=== PATIENT | male | born 1960 | race Caucasian/White ===

== ENCOUNTER → 2018-03-25 09:13 | Outpatient (CLI) | payer BC, SELFPAY ==
[2018-03-25 13:02] LABS: Anion Gap 11 (5-15); BUN 21 mg/dL (7-18); BUN/Creat Ratio 18.9 RATIO (10-20); Calcium,Total 8.9 mg/dL (8.5-10.1); Chloride 103 mmol/L (98-107); Cholesterol 191 mg/dL (200); Creatinine, Serum 1.11 mg/dL (0.70-1.30); EST Glomerular Filtration Rate 72 mL/min (>60); Est Glom Filt Rate - Afr Amer 87 mL/min (>60); Glucose 106 mg/dL (74-106); High Density Lipoprotein 32 mg/dL; Potassium 4.2 mmol/L (3.5-5.1); Sodium Level 141 mmol/L (136-145); Triglycerides 279 mg/dL; Uric Acid 8.3 mg/dL (3.5-7.2); Very Low Density Lipoprotein 56 mg/dL (5-40)
== END ==
PROVIDERS: Family Provider Family Medicine; PCP Family Medicine; Referring Provider Family Medicine; Visit Provider Family Medicine
DX: I10 Essential (primary) hypertension (principal); M10.9 Gout, unspecified; Z12.5 Encounter for screening for malignant neoplasm of prostate; E78.5 Hyperlipidemia, unspecified
CPT/HCPCS: 36415; 80048; 80061; 84153; 84550; G0103

== ENCOUNTER → 2019-04-22 10:12 | Outpatient (CLI) | payer BC, SELFPAY ==
[2019-04-22 13:07] LABS: ALB/GLOB Ratio 0.9 RATIO (0.9-2.4); AST(SGOT) 29 U/L (15-37); Alanine Aminotransfer ALT/SGPT 54 U/L (16-61); Albumin, Serum 3.7 g/dL (3.2-5.0); Alkaline Phosphatase 83 U/L (45-117); Anion Gap 6 (5-15); BUN 15 mg/dL (7-18); BUN/Creat Ratio 15.3 RATIO (10-20); Calcium,Total 8.7 mg/dL (8.5-10.1); Chloride 106 mmol/L (98-107); Cholesterol 193 mg/dL (200); Creatinine, Serum 0.98 mg/dL (0.70-1.30); EST Glomerular Filtration Rate 83 mL/min (>60); Est Glom Filt Rate - Afr Amer 100 mL/min (>60); Globulin 3.9 g/dL (2.2-4.2); Glucose 88 mg/dL (74-106); High Density Lipoprotein 34 mg/dL; Potassium 3.9 mmol/L (3.5-5.1); Protein, Total 7.6 g/dL (6.4-8.2); Sodium Level 139 mmol/L (136-145); Triglycerides 315 mg/dL; Very Low Density Lipoprotein 63 mg/dL (5-40)
== END ==
PROVIDERS: Family Provider Family Medicine; PCP Family Medicine; Referring Provider Family Medicine; Visit Provider Family Medicine
DX: I10 Essential (primary) hypertension (principal); E78.5 Hyperlipidemia, unspecified; Z12.5 Encounter for screening for malignant neoplasm of prostate
CPT/HCPCS: 36415; 80053; 80061; 84153; G0103

== ENCOUNTER → 2020-05-03 08:24 | Outpatient (CLI) | payer BC, SELFPAY ==
[2020-05-03 10:06] LABS: Hematocrit 41.9 % (40-54); Hemoglobin 14.5 g/dL (13.0-16.5); Mean Corp Hgb Conc 34.6 g/dL (32-36); Mean Corpuscular Hgb 31.9 pg (27.0-32.0); Mean Corpuscular Volume 92.3 fL (80-94); Mean Platelet Vol. 9.5 fl (6.2-12.0); Platelet Count 172 K/mm3 (150-450); RBC Distribution Width CV 12.2 % (11.6-14.6); RBC Distribution Width SD 41.1 fl (35.1-43.9); Red Blood Count 4.54 M/mm3 (4.6-6.2); White Blood Count 4.1 K/mm3 (4.4-11.0)
[2020-05-03 10:36] LABS: AST(SGOT) 31 U/L (15-37); Alanine Aminotransfer ALT/SGPT 55 U/L (16-61); Albumin, Serum 3.6 g/dL (3.2-5.0); Alkaline Phosphatase 95 U/L (45-117); Anion Gap 7 (5-15); BUN 23 mg/dL (7-18); BUN/Creat Ratio 23.3 RATIO (10-20); Calcium,Total 8.8 mg/dL (8.5-10.1); Chloride 105 mmol/L (98-107); Cholesterol 199 mg/dL (200); Creatinine, Serum 0.99 mg/dL (0.70-1.30); EST Glomerular Filtration Rate 82 mL/min (>60); Est Glom Filt Rate - Afr Amer 99 mL/min (>60); Globulin 3.6 g/dL (2.2-4.2); Glucose 116 mg/dL (74-106); High Density Lipoprotein 37 mg/dL; PSA,Total - Annual Screen 0.98 ng/mL (0.00-4.00); Protein, Total 7.2 g/dL (6.4-8.2); Sodium Level 139 mmol/L (136-145); Triglycerides 336 mg/dL; Very Low Density Lipoprotein 67 mg/dL (5-40)
== END ==
PROVIDERS: PCP Family Medicine; Referring Provider Family Medicine; Visit Provider Family Medicine
DX: I10 Essential (primary) hypertension (principal); E78.5 Hyperlipidemia, unspecified; Z12.5 Encounter for screening for malignant neoplasm of prostate
CPT/HCPCS: 36415; 80053; 80061; 84153; 85027; G0103

== ENCOUNTER → 2020-06-21 11:04 | Outpatient (CLI) | payer BC, SELFPAY ==
--- NOTE | 2020-06-21 11:06 | US_ITS ---
STUDY: RENAL ULTRASOUND - COMPLETE REASON FOR EXAM: Male, 60 years old. RENAL MASS TECHNIQUE: Ultrasound evaluation of the kidneys was performed with real-time and static browne-scale imaging. COMPARISON: None. FINDINGS: RIGHT KIDNEY: Normal location of the right kidney, which is normal in size. The right kidney measures 11.2 x 7.6 x 7.3 cm. There is a normal cortex of the right kidney. The renal cortex measures 1.7 cm. There is a 4.2 x 3.5 x 3.7 cm cyst. There are no right renal calculi. There is no right hydronephrosis. DISTAL RIGHT URETER: There is non-visualization of the distal right ureter. There is no demonstrated right ureterovesical junction calculus. There is a visualized right ureteral jet. LEFT KIDNEY: Normal location of the left kidney, which is normal in size. The left kidney measures 11.7 x 5.5 x 5.7 cm. There is a normal cortex of the left kidney. The renal cortex measures 1.5 cm. There is no left renal mass or cyst. There are no left renal calculi. There is no left hydronephrosis. DISTAL LEFT URETER: There is non-visualization of the distal left ureter. There is no demonstrated left ureterovesical junction calculus. There is a visualized left ureteral jet. BLADDER: The distended urinary bladder has a volume of 85 ml. There is a normal wall thickness of the distended urinary bladder. There is no demonstrated mass within the urinary bladder. There are no demonstrated bladder calculi. US/Kidney and Bladder IMPRESSION: Right renal cyst. Electronically Signed: Elio Duran DO at 23:56 EST Tel [phone], Service support ,
== END ==
PROVIDERS: PCP Family Medicine; Referring Provider Family Medicine; Visit Provider Family Medicine
DX: N28.89 Other specified disorders of kidney and ureter (principal)
CPT/HCPCS: 76770

== ENCOUNTER → 2021-10-21 | Outpatient (CLI) | payer BC, SELFPAY ==
[2021-10-21 12:05] LABS: Absolute Neutrophil Count 2.4 X10^3/uL (2.0-7.7); Basophil# 0.02 X10^3/uL; Basophil% 0.5 % (0-1); Eosinophil# 0.07 X10^3/uL; Eosinophils% 1.8 % (0-5); Hemoglobin 15.2 g/dL (13.0-16.5); Lymphocyte % 25.3 % (19-41); Mean Corp Hgb Conc 35.3 g/dL (32-36); Mean Corpuscular Hgb 32.8 pg (27.0-32.0); Mean Corpuscular Volume 92.7 fL (80-94); Mean Platelet Vol. 9.8 fl (6.2-12.0); Monocyte# 0.47 X10^3/uL; Monocyte% 11.9 % (0-10); NRBC Flagged by Analyzer 0 % (0-5); Neutrophil # 2.39 X10^3/uL (2.7-7.7); Neutrophil % 60.5 % (47-70); Platelet Count 165 K/mm3 (150-450); RBC Distribution Width CV 12.4 % (11.6-14.6); RBC Distribution Width SD 41.7 fl (35.1-43.9); Red Blood Count 4.64 M/mm3 (4.6-6.2)
[2021-10-21 12:19] LABS: AST(SGOT) 29 U/L (15-37); Alanine Aminotransfer ALT/SGPT 52 U/L (16-61); Albumin, Serum 3.8 g/dL (3.2-5.0); Alkaline Phosphatase 90 U/L (45-117); Anion Gap 5 (5-15); BUN 19 mg/dL (7-18); BUN/Creat Ratio 17.4 RATIO (10-20); Calcium,Total 9.1 mg/dL (8.5-10.1); Chloride 105 mmol/L (98-107); Creatinine, Serum 1.09 mg/dL (0.70-1.30); EST Glomerular Filtration Rate 73 mL/min (>60); Est Glom Filt Rate - Afr Amer 88 mL/min (>60); Globulin 3.8 g/dL (2.2-4.2); Glucose 92 mg/dL (74-106); Potassium 4.3 mmol/L (3.5-5.1); Protein, Total 7.6 g/dL (6.4-8.2); Sodium Level 138 mmol/L (136-145); Uric Acid 8.4 mg/dL (3.5-7.2)
== END | disposition home or self-care (01) ==
LOC: MTLAB 10:26
PROVIDERS: PCP Family Medicine; Referring Provider Family Medicine; Visit Provider Family Medicine
DX: M10.9 Gout, unspecified (principal); I10 Essential (primary) hypertension
CPT/HCPCS: 36415; 80053; 84550; 85025

== ENCOUNTER → 2022-05-17 | Outpatient (CLI) | payer BC, SELFPAY ==
--- NOTE | 2022-05-17 09:40 | EKG12_ITS ---
Test Reason : PRE-OP Blood Pressure : / mmHG Vent. Rate : 069 BPM Atrial Rate : 069 BPM P-R Int : 162 ms QRS Dur : 082 ms QT Int : 386 ms P-R-T Axes : 054 041 066 degrees QTc Int : 413 ms Normal sinus rhythm Normal ECG Confirmed by SANJANA STEVENSON, ELLEN ([id number]), primer expeditor and drier LILY RAPHAEL ([id number]) on 05/18/2022 10:52:55 AM Referred By: Nick Wilcox Confirmed By:ELLEN ALLAN MD
[2022-05-17 10:30] LABS: Hematocrit 41.4 % (40-54); Hemoglobin 14.8 g/dL (13.0-16.5); Mean Corp Hgb Conc 35.7 g/dL (32-36); Mean Corpuscular Hgb 32.7 pg (27.0-32.0); Mean Corpuscular Volume 91.4 fL (80-94); Mean Platelet Vol. 9.7 fl (6.2-12.0); Platelet Count 147 K/mm3 (150-450); RBC Distribution Width CV 11.9 % (11.6-14.6); RBC Distribution Width SD 39.8 fl (35.1-43.9); Red Blood Count 4.53 M/mm3 (4.6-6.2); White Blood Count 4.1 K/mm3 (4.4-11.0)
[2022-05-17 11:05] LABS: Anion Gap 5 (5-15); BUN 20 mg/dL (7-18); BUN/Creat Ratio 20.6 RATIO (10-20); Calcium,Total 9.6 mg/dL (8.5-10.1); Chloride 104 mmol/L (98-107); Creatinine, Serum 0.97 mg/dL (0.70-1.30); EST Glomerular Filtration Rate 83 mL/min (>60); Est Glom Filt Rate - Afr Amer 101 mL/min (>60); Glucose 141 mg/dL (74-106); Potassium 4.2 mmol/L (3.5-5.1); Sodium Level 137 mmol/L (136-145)
== END | disposition home or self-care (01) ==
LOC: PSN 09:38
PROVIDERS: PCP Family Medicine; Referring Provider Orthopaedic Surgery; Visit Provider Orthopaedic Surgery
DX: Z01.818 Encounter for other preprocedural examination (principal)
CPT/HCPCS: 36415; 80048; 85027; 93005

== ENCOUNTER → 2022-10-06 | Outpatient (CLI) | payer BC, SELFPAY ==
[2022-10-06 10:41] LABS: AST(SGOT) 19 U/L (15-37); Alanine Aminotransfer ALT/SGPT 34 U/L (16-61); Albumin, Serum 3.7 g/dL (3.2-5.0); Alkaline Phosphatase 87 U/L (45-117); Bilirubin, Direct 0.14 mg/dL (0.00-0.30); Cholesterol 198 mg/dL (200); Globulin 3.5 g/dL (2.2-4.2); High Density Lipoprotein 36 mg/dL; Protein, Total 7.2 g/dL (6.4-8.2); Triglycerides 229 mg/dL; Uric Acid 5.4 mg/dL (3.5-7.2); Very Low Density Lipoprotein 46 mg/dL (5-40)
== END | disposition home or self-care (01) ==
LOC: LAB 09:34
PROVIDERS: PCP Family Medicine; Referring Provider Nurse Practitioner Family; Visit Provider Nurse Practitioner Family
DX: Z00.00 Encounter for general adult medical examination without abnormal findings (principal); M10.9 Gout, unspecified; E78.5 Hyperlipidemia, unspecified; I10 Essential (primary) hypertension
CPT/HCPCS: 36415; 80061; 80076; 84550

== ENCOUNTER → 2022-11-06 | Outpatient (CLI) | payer BC, SELFPAY ==
[2022-11-06 12:31] LABS: Absolute Lymphocyte Count 1.36 X10^3/uL (0.83-4.51); Absolute Neutrophil Count 2.4 X10^3/uL (2.0-7.7); Basophil# 0.02 X10^3/uL; Basophil% 0.4 % (0-1); Eosinophil# 0.07 X10^3/uL; Eosinophils% 1.6 % (0-5); Hemoglobin 14.5 g/dL (13.0-16.5); Lymphocyte # 1.36 X10^3/ul (0.83-4.51); Lymphocyte % 30.5 % (19-41); Mean Corp Hgb Conc 35.4 g/dL (32-36); Mean Corpuscular Volume 93.4 fL (80-94); Mean Platelet Vol. 9.6 fl (6.2-12.0); Monocyte# 0.61 X10^3/uL; Monocyte% 13.7 % (0-10); NRBC Flagged by Analyzer 0 % (0-5); Neutrophil # 2.38 X10^3/uL (2.7-7.7); Neutrophil % 53.4 % (47-70); Platelet Count 165 K/mm3 (150-450); RBC Distribution Width CV 12.4 % (11.6-14.6); RBC Distribution Width SD 42.8 fl (35.1-43.9); Red Blood Count 4.39 M/mm3 (4.6-6.2); White Blood Count 4.5 K/mm3 (4.4-11.0)
[2022-11-06 13:10] LABS: Anion Gap 4 (5-15); BUN 15 mg/dL (7-18); BUN/Creat Ratio 15.6 RATIO (10-20); Calcium,Total 8.9 mg/dL (8.5-10.1); Chloride 106 mmol/L (98-107); Creatinine, Serum 0.96 mg/dL (0.70-1.30); EST Glomerular Filtration Rate 84 mL/min (>60); Est Glom Filt Rate - Afr Amer 101 mL/min (>60); Glucose 109 mg/dL (74-106); Potassium 3.9 mmol/L (3.5-5.1); Sodium Level 138 mmol/L (136-145); Uric Acid 5.8 mg/dL (3.5-7.2)
== END | disposition home or self-care (01) ==
LOC: LAB 11:57
PROVIDERS: PCP Family Medicine; Referring Provider Nurse Practitioner Family; Visit Provider Nurse Practitioner Family
DX: M10.9 Gout, unspecified (principal); I10 Essential (primary) hypertension
CPT/HCPCS: 36415; 80048; 84550; 85025

== ENCOUNTER → 2024-03-14 | Outpatient (CLI) | payer BC, SELFPAY ==
[2024-03-14 08:55] LABS: Absolute Lymphocyte Count 1.15 X10^3/uL (0.83-4.51); Absolute Neutrophil Count 2.7 X10^3/uL (2.0-7.7); Basophil# 0.02 X10^3/uL; Basophil% 0.5 % (0-1); Eosinophil# 0.09 X10^3/uL; Hematocrit 42.3 % (40-54); Hemoglobin 15.2 g/dL (13.0-16.5); Lymphocyte # 1.15 X10^3/ul (0.83-4.51); Lymphocyte % 26.1 % (19-41); Mean Corp Hgb Conc 35.9 g/dL (32-36); Mean Corpuscular Hgb 32.6 pg (27.0-32.0); Mean Corpuscular Volume 90.8 fL (80-94); Mean Platelet Vol. 9.5 fl (6.2-12.0); Monocyte# 0.42 X10^3/uL; Monocyte% 9.5 % (0-10); NRBC Flagged by Analyzer 0 % (0-5); Neutrophil # 2.71 X10^3/uL (2.7-7.7); Neutrophil % 61.7 % (47-70); Platelet Count 157 K/mm3 (150-450); RBC Distribution Width SD 39.4 fl (35.1-43.9); Red Blood Count 4.66 M/mm3 (4.6-6.2); White Blood Count 4.4 K/mm3 (4.4-11.0)
[2024-03-14 09:23] LABS: AST(SGOT) 30 U/L (15-37); Alanine Aminotransfer ALT/SGPT 51 U/L (16-61); Albumin, Serum 3.7 g/dL (3.2-5.0); Alkaline Phosphatase 82 U/L (45-117); Anion Gap 5 (5-15); BUN 18 mg/dL (7-18); Calcium,Total 9.1 mg/dL (8.5-10.1); Chloride 107 mmol/L (98-107); Cholesterol 192 mg/dL (200); EST Glomerular Filtration Rate 80 mL/min (>60); Est Glom Filt Rate - Afr Amer 96 mL/min (>60); Globulin 3.8 g/dL (2.2-4.2); Glucose 126 mg/dL (74-106); High Density Lipoprotein 37 mg/dL; PSA,Total - Annual Screen 0.99 ng/mL (0.00-4.00); Potassium 4.1 mmol/L (3.5-5.1); Protein, Total 7.5 g/dL (6.4-8.2); Sodium Level 137 mmol/L (136-145); Triglycerides 272 mg/dL; Uric Acid 6.8 mg/dL (3.5-7.2); Very Low Density Lipoprotein 54 mg/dL (5-40)
[2024-03-14 19:13] LABS: Hemoglobin A1c 5.9 % (3.8-5.6)
== END | disposition home or self-care (01) ==
LOC: LAB 08:15
PROVIDERS: PCP Nurse Practitioner Family; Referring Provider Nurse Practitioner Family; Visit Provider Nurse Practitioner Family
DX: I10 Essential (primary) hypertension (principal); E78.5 Hyperlipidemia, unspecified; Z12.5 Encounter for screening for malignant neoplasm of prostate; M10.9 Gout, unspecified; R73.01 Impaired fasting glucose
CPT/HCPCS: 36415; 80053; 80061; 83036; 84153; 84550; 85025; G0103

== ENCOUNTER → 2024-10-19 | Outpatient (CLI) | payer BC, SELFPAY ==
--- OUTSIDE RECORDS SUMMARY | 2024-10-19 14:36 | XMS RPT_ITS | CCD ---
Author Organization [facility] [employer] [facility] Care Team Providers Care Channel Partners Name Role Phone Unavailable Primary Care Provider Unavailabl e Nancy Underwood Attending Unavailable Nancy Underwood Referring Unavailable Nancy Underwood Primary Care Unavailable FriendBret Attending Unavailable Nancy Underwood Primary Care Unavailable Medications Current Medications Medication Drug Class(es) Dates Sig (Normalized) Sig (Original) amLODIPine 5 mg oral tablet (2 sources) Dihydropyridine Calcium Channel Marlena Start: 06-02-2022 take 1 tablet by mouth once daily amLODIPine (NORVASC) 5 mg tablet Take 5 mg by mouth once daily. 06/02/2022 Active Comment on above: Take 5 mg by mouth o nce daily. benzonatate 100 mg oral capsule (2 sources) Non-narcotic Antitussive Start: 06-21-2022 take 1 capsule by mouth every eight hours as needed benzonatate (TESSALON PERLES) 100 mg capsule Take 1 capsule by mouth three times daily as needed for cough. 14 capsule 06/21/2022 Active Comment on above: Take 1 capsule by mo [facility] three times daily as needed for cough. doxycycline monohydrate 100 mg oral tablet (1 source) Tetracycline-class Drug Start: 06-21-2022 End: 06-26-2022 take 1 tablet by mouth twice daily doxycycline monohydrate 100 mg tablet Take 1 tablet by mouth twice daily for 5 days. 10 tablet 0 06/21/2022 06/26/2022 Active Comment on above: Take 1 tablet by shanthi twice daily for 5 days. ramipril 10 mg oral capsule (2 sources) Angiotensin Converting Enzyme Inhibitor Start: 04-23-2022 take 1 capsule by mouth twice daily ramipril (ALTACE) 10 mg capsule Take 10 mg by mouth twice daily. 04/23/2022 Active Comment on above: Take 10 mg by mouth twice daily. Problems Problem Classification Problem Date Documented Da te Episodic/Chronic Essential hypertension (2 sources) Hypertensive disorder; Translations: [Essential (primary) hypertension] Onset: 04-09-2024 Chronic Other lower respiratory disease (1 source) Cough; Translations: [Acute cough] Episodic Other lower respiratory disease (1 source) Cough; Translations: [Acute cough] 06-21-2022 Episodic Other upper respiratory infections (1 source) Chronic sinusitis; Translations: [Chronic sinusitis, unspecified] Chronic Unclassified (1 source) Acute cough; Translations: [Acute cough] Onset: 06-21-2022 Results Test Name Value Interpretation Reference Range Facility CBC W/Diff, Automatedon 11-0 Absolute Lymph 1.15 X10 3/uL Normal 0.83-4.51 [facility] Comment on above: Performed By: #### L 500.4050, L501.9910, L501.1400, L500.4100, L501.9985, L100.0100 #### [facility] [address] [place], [address] Absolute Neut 2.7 X10 3/uL Normal 2.0-7.7 [facility] Comment on above: Performed By: #### L 500.4050, L501.9910, L501.1400, L500.4100, L501.9985, L100.0100 #### [facility] [address] [facility] [place], [address] Basophils/100 WBC (Bld) 0.5 % Normal 0-1 [facility] Comment on above: Performed By: #### L 500.4050, L501.9910, L501.1400, L500.4100, L501.9985, L100.0100 #### [facility] [address] [place], [address] Eosinophils/100 WBC (Bld) 2.0 % Normal 0-5 [facility] Comment on above: Performed By: #### L 500.4050, L501.9910, L501.1400, L500.4100, L501.9985, L100.0100 #### [facility] [address] [place], [address] Erythrocyte distribution width (RBC) [Ratio] 12.0 % Normal 11.6-14.6 [facility] Comment on above: Performed By: #### L 500.4050, L501.9910, L501.1400, L500.4100, L501.9985, L100.0100 #### [facility] [address] [place], [address] Hematocrit (Bld) [Volume fraction] 42.3 % Normal 40-54 [facility] Comment on above: Performed By: #### L 500.4050, L501.9910, L501.1400, L500.4100, L501.9985, L100.0100 #### [facility] [address] [place], [address] Hemoglobin (Bld) [Mass/Vol] 15.2 g/dL Normal 13.0-16.5 [facility] Comment on above: Performed By: #### L 500.4050, L501.9910, L501.1400, L500.4100, L501.9985, L100.0100 #### [facility] [address] [place], [address] IG% 0.200 Normal 0.0-0.9 [facility] Comment on above: Result Comment: IG% - Immature Granulocytes (promyelocytes, myelocytes and metamyelocytes) > 1% indicates that a LEFT SHIFT is Present. Performed By: #### L 500.4050, L501.9910, L501.1400, L500.4100, L501.9985, L100.0100 #### [facility] [address] [place], [address] Lymphocytes/100 WBC (Bld) 26.1 % Normal 19-41 [facility] Comment on above: Performed By: #### L 500.4050, L501.9910, L501.1400, L500.4100, L501.9985, L100.0100 #### [facility] [address] [place], [address] MCH (RBC) [Entitic mass] 32.6 pg High 27.0-32.0 [facility] Comment on above: Performed By: #### L 500.4050, L501.9910, L501.1400, L500.4100, L501.9985, L100.0100 #### [facility] [address] [place], [address] MCHC (RBC) [Mass/Vol] 35.9 g/dL Normal 32-36 [facility] Comment on above: Performed By: #### L 500.4050, L501.9910, L501.1400, L500.4100, L501.9985, L100.0100 #### [facility] [address] [place], [address] MCV (RBC) [Entitic vol] 90.8 fL Normal 80-94 [facility] Comment on above: Performed By: #### L 500.4050, L501.9910, L501.1400, L500.4100, L501.9985, L100.0100 #### [facility] [address] [place], [address] Monocytes/100 WBC (Bld) 9.5 % Normal 0-10 [facility] Comment on above: Performed By: #### L 500.4050, L501.9910, L501.1400, L500.4100, L501.9985, L100.0100 #### [facility] [address] [place], [address] Neutrophils/100 WBC (Bld) 61.7 % Normal 47-70 [facility] Comment on above: Performed By: #### L 500.4050, L501.9910, L501.1400, L500.4100, L501.9985, L100.0100 #### [facility] [address] [place], [address] Nucleated RBC (Bld) [#/Vol] 0 10*3/uL Normal 0-5 [facility] Comment on above: Performed By: #### L 500.4050, L501.9910, L501.1400, L500.4100, L501.9985, L100.0100 #### [facility] [address] [place], [address] Platelet mean volume (Bld) [Entitic vol] 9.5 fL Normal 6.2-12.0 [facility] Comment on above: Performed By: #### L 500.4050, L501.9910, L501.1400, L500.4100, L501.9985, L100.0100 #### [facility] [address] [place], [address] Platelets (Bld) [#/Vol] 157 10*3/uL Normal 150-450 [facility] Comment on above: Performed By: #### L 500.4050, L501.9910, L501.1400, L500.4100, L501.9985, L100.0100 #### [facility] [address] [place], [address] RBC (Bld) [#/Vol] 4.66 10*6/uL Normal 4.6-6.2 [facility] Comment on above: Performed By: #### L 500.4050, L501.9910, L501.1400, L500.4100, L501.9985, L100.0100 #### [facility] [address] [place], [address] RDW SD 39.4 fl Normal 35.1-43.9 [facility] Comment on above: Performed By: #### L 500.4050, L501.9910, L501.1400, L500.4100, L501.9985, L100.0100 #### [facility] [address] [place], [address] WBC (Bld) [#/Vol] 4.4 10*3/uL Normal 4.4-11.0 [facility] Comment on above: Performed By: #### L 500.4050, L501.9910, L501.1400, L500.4100, L501.9985, L100.0100 #### [facility] [address] [place], [address] Comprehensive Metabolic Prof kyon 03-14-2024 Albumin [Mass/Vol] 3.7 g/dL Normal 3.2-5.0 [facility] Comment on above: Performed By: #### L 500.4050, L501.9910, L501.1400, L500.4100, L501.9985, L100.0100 #### [facility] [address] [place], [address] Albumin/Globulin [Mass ratio] 1.0 {ratio} Normal 0.9-2.4 [facility] Comment on above: Performed By: #### L 500.4050, L501.9910, L501.1400, L500.4100, L501.9985, L100.0100 #### [facility] [address] [place], [address] ALK P 82 U/L Normal 45-117 [facility] Comment on above: Performed By: #### L 500.4050, L501.9910, L501.1400, L500.4100, L501.9985, L100.0100 #### [facility] [address] [place], [address] ALT [Catalytic activity/Vol] 51 U/L Normal 16-61 [facility] Comment on above: Performed By: #### L 500.4050, L501.9910, L501.1400, L500.4100, L501.9985, L100.0100 #### [facility] [address] [place], [address] AST [Catalytic activity/Vol] 30 U/L Normal 15-37 [facility] Comment on above: Performed By: #### L 500.4050, L501.9910, L501.1400, L500.4100, L501.9985, L100.0100 #### [facility] [address] [place], [address] Bilirubin [Mass/Vol] 0.50 mg/dL Normal 0.20-1.00 [facility] Comment on above: Result Comment: For patients on eltrombopag therapy, use of Dimension [place] TBIL is not recommended. Performed By: #### L 500.4050, L501.9910, L501.1400, L500.4100, L501.9985, L100.0100 #### [facility] [address] [place], [address] BUN/CRE 18.0 RATIO Normal 10-20 [facility] Comment on above: Performed By: #### L 500.4050, L501.9910, L501.1400, L500.4100, L501.9985, L100.0100 #### [facility] [address] [place], [address] CA,Total 9.1 mg/dL Normal 8.5-10.1 [facility] Comment on above: Performed By: #### L 500.4050, L501.9910, L501.1400, L500.4100, L501.9985, L100.0100 #### [facility] [address] [place], [address] Chloride [Moles/Vol] 107 mmol/L Normal 98-107 [facility] Comment on above: Performed By: #### L 500.4050, L501.9910, L501.1400, L500.4100, L501.9985, L100.0100 #### [facility] [address] [place], [address] CO2 [Moles/Vol] 25.0 mmol/L Normal 21.0-32.0 [facility] Comment on above: Performed By: #### L 500.4050, L501.9910, L501.1400, L500.4100, L501.9985, L100.0100 #### [facility] [address] [place], [address] Creatinine [Mass/Vol] 1.00 mg/dL Normal 0.70-1.30 [facility] Comment on above: Result Comment: The validity of the calculated GFR GFRAA in patients over 70 years has not been determined. Clinical correlation is essential. Performed By: #### L 500.4050, L501.9910, L501.1400, L500.4100, L501.9985, L100.0100 #### [facility] [address] [place], [address] EST GFR - AA 96 mL/min Normal >60 [facility] Comment on above: Result Comment: Afri can [place] GFR Calc Performed By: #### L 500.4050, L501.9910, L501.1400, L500.4100, L501.9985, L100.0100 #### [facility] [address] [place], [address] GAP 5 Normal 5-15 [facility] Comment on above: Performed By: #### L 500.4050, L501.9910, L501.1400, L500.4100, L501.9985, L100.0100 #### [facility] [address] [place], [address] GFR/1.73 sq M.predicted among non-blacks MDRD (S/P/Bld) [Vol rate/Area] 80 mL/min/{1.73_m2} Normal >60 [facility] Comment on above: Result Comment: Non- GFR Calc Performed By: #### L 500.4050, L501.9910, L501.1400, L500.4100, L501.9985, L100.0100 #### [facility] [address] [place], [address] Globulin (S) [Mass/Vol] 3.8 g/dL Normal 2.2-4.2 [facility] Comment on above: Performed By: #### L 500.4050, L501.9910, L501.1400, L500.4100, L501.9985, L100.0100 #### [facility] [address] [place], [address] Glucose [Mass/Vol] 126 mg/dL High 74-106 [facility] Comment on above: Result Comment: Fast ing Glucose result greater than or equal to 126 mg/dL suggests DIABETES MELLITUS per A.D.A. criteria. Performed By: #### L 500.4050, L501.9910, L501.1400, L500.4100, L501.9985, L100.0100 #### [facility] [address] [place], [address] Potassium [Moles/Vol] 4.1 mmol/L Normal 3.5-5.1 [facility] Comment on above: Performed By: #### L 500.4050, L501.9910, L501.1400, L500.4100, L501.9985, L100.0100 #### [facility] [address] [place], [address] Sodium [Moles/Vol] 137 mmol/L Normal 136-145 [facility] Comment on above: Performed By: #### L 500.4050, L501.9910, L501.1400, L500.4100, L501.9985, L100.0100 #### [facility] [address] [place], [address] T PROT 7.5 g/dL Normal 6.4-8.2 [facility] Comment on above: Performed By: #### L 500.4050, L501.9910, L501.1400, L500.4100, L501.9985, L100.0100 #### [facility] [address] [place], [address] Urea nitrogen [Mass/Vol] 18 mg/dL Normal 7-18 [facility] Comment on above: Performed By: #### L 500.4050, L501.9910, L501.1400, L500.4100, L501.9985, L100.0100 #### [facility] [address] [place], [address] Hemoglobin A1con 03-14-2024 HbA1c (Bld) [Mass fraction] 5.9 % High 3.8-5.6 [facility] Comment on above: Order Comment: ALVA UNDERWOOD CNP ADDED AN A1C. RANGLE Result Comment: Norm al < 5.7 % Prediabetic 5.7 - 6.4 % Diabetic >or= 6.5 % Please note range changes. Performed By: #### L 500.4050, L501.9910, L501.1400, L500.4100, L501.9985, L100.0100 #### [facility] [address] [place], [address] Lipid Profileon 03-14-2024 Cholesterol [Mass/Vol] 192 mg/dL Normal 200 [facility] Comment on above: Result Comment: <200 mg/dL Desirable 200-240 mg/dL Borderline >240 mg/dL High Risk Performed By: #### L 500.4050, L501.9910, L501.1400, L500.4100, L501.9985, L100.0100 #### [facility] [address] [place], [address] Cholesterol in HDL [Mass/Vol] 37 mg/dL Low [facility] Comment on above: Result Comment: The drugs N-Acetylcysteine and Metamizole may falsely depress this assay. Reference Range HDL <40 mg/dL Low HDL Cholesterol HDL >or= 60 mg/dL High HDL Cholesterol Performed By: #### L 500.4050, L501.9910, L501.1400, L500.4100, L501.9985, L100.0100 #### [facility] [address] [place], [address] Cholesterol in LDL [Mass/Vol] 101 mg/dL Normal 0-130 [facility] Comment on above: Performed By: #### L 500.4050, L501.9910, L501.1400, L500.4100, L501.9985, L100.0100 #### [facility] [address] [place], [address] Cholesterol in VLDL [Mass/Vol] 54 mg/dL High 5-40 [facility] Comment on above: Performed By: #### L 500.4050, L501.9910, L501.1400, L500.4100, L501.9985, L100.0100 #### [facility] [address] [place], [address] Triglyceride [Mass/Vol] 272 mg/dL High [facility] Comment on above: Result Comment: The drugs N-Acetylcysteine and Metamizole may falsely depress this assay. Serum Triglycerides Reference Interval Normal <150 mg/dL Borderline high 150 - 199 mg/dL High 200 - 499 mg/dL Very High > or = 500 mg/dL Performed By: #### L 500.4050, L501.9910, L501.1400, L500.4100, L501.9985, L100.0100 #### [facility] [address] [place], [place], [id number] PSA,Total - Annual Screenon 03-14-2024 PSA,TOT SCREEN 0.99 ng/mL Normal 0.00-4.00 [facility] Comment on above: Result Comment: This test was performed using the TPSA assay method for the [employer] chemistry system. Values obtained with different assay methods cannot be used interchangably. When changing PSA assays in the course of monitoring a patient, additional sequential testing should be carried out to confirm baseline values. Performed By: #### L 500.4050, L501.9910, L501.1400, L500.4100, L501.9985, L100.0100 #### [facility] [address] [place], [place], [id number] Uric Acidon 03-14-2024 URIC 6.8 mg/dL Normal 3.5-7.2 [facility] Comment on above: Result Comment: The drugs N-Acetylcysteine and Metamizole may falsely depress this assay. Performed By: #### L 500.4050, L501.9910, L501.1400, L500.4100, L501.9985, L100.0100 #### [facility] [address] [place], [place], [id number] Absolute lymphocyte countOrd ered By: Nancy Underwood on 11-06-2022 Lymphocytes Auto (Unsp spec) [#/Vol] 1.36 10*3/uL 0.83-4.51 [facility] Basophil percentageOrdered B y: Nancy Mchughgar on 11-06-2022 Basophils/100 WBC (Bld) 0.4 % 0-1 [facility] Chloride [Moles/Vol] 106 mmol/L 98-107 [facility] Eosinophils/100 WBC (Bld) 1.6 % 0-5 [facility] Glucose [Mass/Vol] 109 mg/dL 74-106 [facility] Comment on above: Fasting Glucose resu lt from 100 to 125 mg/dL suggests IMPAIRED HOMEOSTASIS per A.D.A. criteria. Neutrophils (Bld) [#/Vol] 2.4 10*3/uL 2.0-7.7 [facility] Neutrophils/100 WBC (Bld) 53.4 % 47-70 [facility] Potassium [Moles/Vol] 3.9 mmol/L 3.5-5.1 [facility] Sodium [Moles/Vol] 138 mmol/L 136-145 [facility] WBC (Bld) [#/Vol] 4.5 10*3/uL 4.4-11.0 [facility] Blood erythrocytes count (nu mber/volume)Ordered By: Nancy Underwood on 11-06-2022 RBC (Bld) [#/Vol] 4.39 10*6/uL 4.6-6.2 [facility] Blood hemoglobin measurement (mass/volume)Ordered By: Nancy Underwood on 11-06-2022 Hemoglobin (Bld) [Mass/Vol] 14.5 g/dL 13.0-16.5 [facility] Blood lymphocytes/100 leukoc ytesOrdered By: Nancy Underwood on 11-06-2022 Lymphocytes/100 WBC (Bld) 30.5 % 19-41 [facility] Blood monocytes/100 leukocyt esOrdered By: Nancy Underwood on 11-06-2022 Monocytes/100 WBC (Bld) 13.7 % 0-10 [facility] Blood platelet mean volumeOr dered By: Nancy Underwood on 11-06-2022 Platelet mean volume (Bld) [Entitic vol] 9.6 fL 6.2-12.0 [facility] Determination of erythrocyte mean corpuscular volume (MCV)Ordered By: Nancy Underwood on 11-06-2022 MCV (RBC) [Entitic vol] 93.4 fL 80-94 [facility] Hematocrit Auto (Bld) [Volum e fraction]Ordered By: Nancy Underwood on 11-06-2022 Hematocrit (Bld) [Volume fraction] 41.0 % 40-54 [facility] - Chemistry and C hemistry - challengeOrdered By: Nancy Underwood on 11-06-2022 CO2 [Moles/Vol] 28.0 mmol/L 21.0-32.0 [facility] Urea nitrogen/Creatinine [Mass ratio] 15.6 mg/mg 10-20 [facility] - Hematology and Cell countsOrdered By: Nancy Underwood on 11-06-2022 Erythrocyte distribution width (RBC) [Entitic vol] 42.8 fL 35.1-43.9 [facility] Erythrocyte distribution width (RBC) [Ratio] 12.4 % 11.6-14.6 [facility] Immature granulocytes/100 WBC (Bld) 0.400 % 0.0-0.9 [facility] Comment on above: IG% - Immature Granu locytes (promyelocytes, myelocytes and metamyelocytes) > 1% indicates that a LEFT SHIFT is Present. MCH (RBC) [Entitic mass] 33.0 pg 27.0-32.0 [facility] Nucleated RBC/100 WBC (Bld) [Ratio] 0 % 0-5 [facility] MCHC Auto (RBC) [Mass/Vol]Or dered By: Nancy Underwood on 11-06-2022 MCHC (RBC) [Mass/Vol] 35.4 g/dL 32-36 [facility] No Panel InformationOrdered By: Nancy Underwood on 11-06-2022 Estimated GFR (MDRD) Amer 101 mL/min >60 [facility] Comment on above: GFR Calc Estimated GFR (MDRD) Non-Af Amer 84 mL/min >60 [facility] Comment on above: Non- GFR Calc Platelets bldOrdered By: Long Underwood on 11-06-2022 Platelets (Bld) [#/Vol] 165 10*3/uL 150-450 [facility] Serum or plasma calcium daniel urement (mass/volume)Ordered By: Nancy Underwood on 11-06-2022 Calcium [Mass/Vol] 8.9 mg/dL 8.5-10.1 [facility] Serum or plasma creatinine m easurement (mass/volume)Ordered By: Nancy Underwood on 11-06-2022 Creatinine [Mass/Vol] 0.96 mg/dL 0.70-1.30 [facility] Comment on above: The validity of the calculated GFR & GFRAA in patients over 70 years has not been determined. Clinical correlation is essential. Serum or plasma urea nitroge n measurement (mass/volume)Ordered By: Nancy Underwood on 11-06-2022 Urea nitrogen [Mass/Vol] 15 mg/dL 7-18 [facility] Serum or plasma uric acid me asurement (mass/volume)Ordered By: Nancy Underwood on 11-06-2022 Urate [Mass/Vol] 5.8 mg/dL 3.5-7.2 [facility] Comment on above: The drugs N-Acetylcy steine and Metamizole may falsely depress this assay. Thin prep Papanicolaou smear with manual screeningOrdered By: Nancy Underwood on 11-06-2022 Thin prep Papanicolaou smear with manual screening 4 5-15 [facility] Basophil percentageOrdered B y: Nancy Underwood on 10-06-2022 Bilirubin [Mass/Vol] 0.30 mg/dL 0.20-1.00 [facility] Comment on above: For patients on eltr ombopag therapy, use of Dimension [place] TBIL is not recommended. Cholesterol [Mass/Vol] 198 mg/dL <200 [facility] Comment on above: <200 mg/dL Desirable 200-240 mg/dL Borderline >240 mg/dL High Risk Protein [Mass/Vol] 7.2 g/dL 6.4-8.2 [facility] Triglyceride [Mass/Vol] 229 mg/dL <199 [facility] Comment on above: The drugs N-Acetylcy steine and Metamizole may falsely depress this assay.Serum Triglycerides Reference Interval Normal <150 mg/dL Borderline high 150 - 199 mg/dL High 200 - 499 mg/dL Very High > or = 500 mg/dL Direct bilirubinOrdered By: Nancy Underwood on 10-06-2022 Bilirubin.direct [Mass/Vol] 0.14 mg/dL 0.00-0.30 [facility] - Chemistry and C hemistry - challengeOrdered By: Nancy Underwood on 10-06-2022 ALP [Catalytic activity/Vol] 87 U/L 45-117 [facility] ALT [Catalytic activity/Vol] 34 U/L 16-61 [facility] Globulin (S) [Mass/Vol] 3.5 g/dL 2.2-4.2 [facility] Serum or plasma albumin daniel urement (mass/volume)Ordered By: Nancy Underwood on 10-06-2022 Albumin [Mass/Vol] 3.7 g/dL 3.2-5.0 [facility] Serum or plasma cholesterol in HDL measurement (mass/volume)Ordered By: Nancy Underwood on 10-06-2022 Cholesterol in HDL [Mass/Vol] 36 mg/dL >40 [facility] Comment on above: The drugs N-Acetylcy steine and Metamizole may falsely depress this assay. Reference Range HDL <40 mg/dL Low HDL Cholesterol HDL >or= 60 mg/dL High HDL Cholesterol Serum or plasma cholesterol in VLDL measurement (mass/volume)Ordered By: Nancy Underwood on 10-06-2022 Cholesterol in VLDL [Mass/Vol] 46 mg/dL 5-40 [facility] Serum or plasma low density lipoprotein (LDL) cholesterol measurement (mass/volume)Ordered By: Nancy Underwood on 10-06-2022 Cholesterol in LDL [Mass/Vol] 116 mg/dL 0-130 [facility] Serum or plasma uric acid me asurement (mass/volume)Ordered By: Nancy Underwood on 10-06-2022 Urate [Mass/Vol] 5.4 mg/dL 3.5-7.2 [facility] Comment on above: The drugs N-Acetylcy steine and Metamizole may falsely depress this assay. Thin prep Papanicolaou smear with manual screeningOrdered By: Nancy Underwood on 10-06-2022 Thin prep Papanicolaou smear with manual screening 19 U/L 15-37 [facility] CNOVon 06-21-2022 CNOV Office Visit (UCWSTR ) DARRYL ANGULO ([id number]) 1960 M Date Time Provider Department 06/21/22 6:45 PM CARMELITA JONES During your visit today, we recorded the following information about you: Temperature Pulse Respiration Blood pressure 97.4 degrees 91/minute 21/minute 182/100 Weight 107.1 kg SHIRLEY Roland 06/21/2022 7:21 PM Signed This note was created using [employer]xtControl. Subjective Darryl Angulo is a 62 year old male. HPI 62-year-old male presents for cough x1 month, nasal congestion. Patient states that he has had nasal congestion, sinus pressure for a month. He has also had a cough for months. He states it is a productive cough and he is coughing up green phlegm. No hemoptysis. He denies any history of asthma or COPD. No shortness of breath or chest pain. No vomiting or diarrhea. No fevers. No sick contacts that he is aware of. He has been taking [id number] DayQuil and NyQuil. Blood pressure is elevated here. States that his blood pressure always goes up and down and he has not taken his evening medication yet. No past medical history on file. No past surgical history on file. ALLERGIES Patient has no allergy information on record. MEDICATIONS amLODIPine (NORVASC) 5 mg tablet Take 5 mg by mouth once daily. ramipril (ALTACE) 10 mg capsule Take 10 mg by mouth twice daily. No family history on file. Social History Tobacco Use Smoking status: Never Passive exposure: Never Smokeless tobacco: Never Review of Systems Constitutional: Negative for chills and fever. HENT: Positive for congestion, sinus pressure and sinus pain. Negative for sore throat. Respiratory: Positive for cough. Negative for shortness of breath. Gastrointestinal: Negative for diarrhea and vomiting. Objective BP 182/100 Pulse 91 Temp 36.3 ?C (97.4 ?F) Resp 21 Wt 107.1 kg (236 lb 3.2 oz) SpO2 97% Physical Exam Vitals and nursing note reviewed. Constitutional: General: He is not in acute distress. Appearance: Normal appearance. He is not toxic-appearing. HENT: Right Ear: Tympanic membrane and ear canal normal. Left Ear: Tympanic membrane and ear canal normal. Nose: Congestion present. Right Sinus: Maxillary sinus tenderness present. Left Sinus: Maxillary sinus tenderness present. Mouth/Throat: Mouth: Mucous membranes are moist. Eyes: Conjunctiva/sclera: Conjunctivae normal. Cardiovascular: Rate and Rhythm: Normal rate and regular rhythm. Pulmonary: Effort: Pulmonary effort is normal. Breath sounds: Normal breath sounds. Skin: General: Skin is warm and dry. Neurological: Mental Status: He is alert. Assessment and Plan ASSESSMENT/PLAN: 1. Sinobronchitis - ICD9: 473.9, 490, ICD10: J32.9, J40 (primary diagnosis) -Symptoms x1 month - Will begin treatment with Doxycycline - Supportive care with plenty of fluids, rest, and analgesia prn. -Symptoms x1 month, declines COVID/flu swab. 2. Acute cough - ICD9: 786.2, ICD10: R05.1 - XR CHEST 2V FRONTAL/LAT - no acute finding. -Rx for Tessalon Perles 3. Hypertension, unspecified type - ICD9: 401.9, ICD10: I10 -Blood pressure elevated at 182/100. This was repeated and remained the same. He has not taken his evening medication yet. He denies any chest pain, headaches. Has been taking OTC medications for his symptoms, which may be increasing his BP. - Recommended regular aerobic exercise. - Recommend home blood pressure monitoring, to bring results in on next visit - Goal of BP <130/80 -Recommended continue medications as prescribed and keep blood pressure log at home to follow-up with PCP this week. -Recommended holding off on OTC cough/cold medications as this may be affecting his blood pressure. Diagnosis and treatment plan were discussed and questions were answered to the patient's satisfaction. Pt acknowledged understanding of concepts and follow up plan. Specific signs and symptoms that would indicate the need for higher level of care were discussed in detail warranting prompt ER evaluation. SHIRLEY Roland Referring Provider: SELF [[id number]] Allergies As of Date: 06/21/2022 (Not on File) Date Reviewed: 06/21/2022 Reviewed by: Mansi Palencia MA - Fully Assessed Reason for Visit: Cough [28] Cmt: Sore throat, chest congestion x 1 month Primary Visit Diagnosis:Sinobronchi tis [J32.9, J40] Other Visit Diagnoses:Acute cough [R05.1] Hypertension, unspecified type [I10] Order(s):XR CHEST 2V FRONTAL/LAT [[id number]] Order #: [id number] FUTURE doxycycline monohydrate 100 mg tabletTake 1 tablet by mouth twice daily for 5 days.Disp: 10 tabletRfl: 0 benzonatate (TESSALON PERLES) 100 mg capsuleTake 1 capsule by mouth three times daily as needed for cough.Disp: 14 capsuleRfl: 0 Prescriptions as of 06/21/2022 - amLODIPine (NORVASC) 5 mg tablet Take 5 mg by mouth once daily. - ramipril (SERAFIN (more content not included)... Normal [facility] XR CHEST 2V FRONTAL/LATon XR CHEST 2V FRONTAL/LAT * * *Final Repor t* * * DATE OF EXAM: Jun 21 2022 7:09PM WOX [id number] - XR CHEST 2V FRONTAL/LAT / PROCEDURE REASON: Acute cough * * * * Physician Interpretation * * * * EXAMINATION: CHEST RADIOGRAPH (2 VIEW FRONTAL and LATERAL) CLINICAL HISTORY: Acute cough MQ: XC2_6 EXAM DATE/TIME: 06/21/2022 7:09 PM COMPARISON: No relevant prior studies available. RESULT: Lines, tubes, and devices: None. Lungs and pleura: No consolidation. No lung mass. No pleural effusion. No pneumothorax. Cardiomediastinal silhouette: Normal cardiomediastinal silhouette. Bones and soft tissues: Unremarkable. IMPRESSION: No acute radiographic abnormality. Therapeutic Riding Instructor: [facility] Transcribe Date/Time: Jun 21 2022 7:16P Dictated by : DANELLE GUZMAN MD This examination was interpreted and the report reviewed and electronically signed by: DANELLE GUZMAN MD on Jun 21 2022 7:16PM EST [id number] N Normal [facility] XR Chest PA and Lateralon IMPRESSION: No acute radiographic abnormality. Therapeutic Riding Instructor: [facility] Transcribe Date/Time: Jun 21 2022 7:16P Dictated by : DANELLE GUZMAN MD This examination was interpreted and the report reviewed and electronically signed by: DANELLE GUZMAN MD on Jun 21 2022 7:16PM EST DIVISION OF RADIOLOGY * * *Final Report* * * DATE OF EXAM: Jun 21 2022 7:09PM WOX [id number] - XR CHEST 2V FRONTAL/LAT / PROCEDURE REASON: Acute cough * * * * Physician Interpretation * * * * EXAMINATION: CHEST RADIOGRAPH (2 VIEW FRONTAL & LATERAL) CLINICAL HISTORY: Acute cough MQ: XC2_6 EXAM DATE/TIME: 06/21/2022 7:09 PM COMPARISON: No relevant prior studies available. RESULT: Lines, tubes, and devices: None. Lungs and pleura: No consolidation. No lung mass. No pleural effusion. No pneumothorax. Cardiomediastinal silhouette: Normal cardiomediastinal silhouette. Bones and soft tissues: Unremarkable. DIVISION OF RADIOLOGY Provider, Terri [facility] - 06/21/2022 * * *Final Report* * * DATE OF EXAM: Jun 21 2022 7:09PM WOX [id number] - XR CHEST 2V FRONTAL/LAT / PROCEDURE REASON: Acute cough * * * * Physician Interpretation * * * * EXAMINATION: CHEST RADIOGRAPH (2 VIEW FRONTAL & LATERAL) CLINICAL HISTORY: Acute cough MQ: XC2_6 EXAM DATE/TIME: 06/21/2022 7:09 PM COMPARISON: No relevant prior studies available. RESULT: Lines, tubes, and devices: None. Lungs and pleura: No consolidation. No lung mass. No pleural effusion. No pneumothorax. Cardiomediastinal silhouette: Normal cardiomediastinal silhouette. Bones and soft tissues: Unremarkable. IMPRESSION IMPRESSION: No acute radiographic abnormality. Therapeutic Riding Instructor: [facility] Transcribe Date/Time: Jun 21 2022 7:16P Dictated by : DANELLE GUZMAN MD This examination was interpreted and the report reviewed and electronically signed by: DANELLE GUZMAN MD on Jun 21 2022 7:16PM EST [facility] Radiology Study observation (narrative) Kayce scales [facility] XR Chest PA and LateralOrder ed By: [facility] Provider on 06-21-2022 [facility] Basophil percentageOrdered B y: Dr. Wilcox on 05-17-2022 Chloride [Moles/Vol] 104 mmol/L 98-107 [facility] Glucose [Mass/Vol] 141 mg/dL 74-106 [facility] Comment on above: Fasting Glucose resu lt greater than or equal to 126 mg/dL suggests DIABETES MELLITUS per A.D.A. criteria. Potassium [Moles/Vol] 4.2 mmol/L 3.5-5.1 [facility] Sodium [Moles/Vol] 137 mmol/L 136-145 [facility] WBC (Bld) [#/Vol] 4.1 10*3/uL 4.4-11.0 [facility] Blood erythrocytes count (nu mber/volume)Ordered By: Dr. Wilcox on 05-17-2022 RBC (Bld) [#/Vol] 4.53 10*6/uL 4.6-6.2 [facility] Blood hemoglobin measurement (mass/volume)Ordered By: Dr. Wilcox on 05-17-2022 Hemoglobin (Bld) [Mass/Vol] 14.8 g/dL 13.0-16.5 [facility] Blood platelet mean volumeOr dered By: Dr. Wilcox on 05-17-2022 Platelet mean volume (Bld) [Entitic vol] 9.7 fL 6.2-12.0 [facility] Determination of erythrocyte mean corpuscular volume (MCV)Ordered By: Dr. Wilcox on 05-17-2022 MCV (RBC) [Entitic vol] 91.4 fL 80-94 [facility] Hematocrit Auto (Bld) [Volum e fraction]Ordered By: Dr. Wilcox on 05-17-2022 Hematocrit (Bld) [Volume fraction] 41.4 % 40-54 [facility] Laboratory - Chemistry and C hemistry - challengeOrdered By: Dr. Wilcox on 05-17-2022 CO2 [Moles/Vol] 28.0 mmol/L 21.0-32.0 [facility] Urea nitrogen/Creatinine [Mass ratio] 20.6 mg/mg 10-20 [facility] Laboratory - Hematology and Cell countsOrdered By: Dr. Wilcox on 05-17-2022 Erythrocyte distribution width (RBC) [Entitic vol] 39.8 fL 35.1-43.9 [facility] Erythrocyte distribution width (RBC) [Ratio] 11.9 % 11.6-14.6 [facility] MCH (RBC) [Entitic mass] 32.7 pg 27.0-32.0 [facility] MCHC Auto (RBC) [Mass/Vol]Or dered By: Dr. Wilcox on 05-17-2022 MCHC (RBC) [Mass/Vol] 35.7 g/dL 32-36 [facility] No Panel InformationOrdered By: Dr. Wilcox on 05-17-2022 Estimated GFR (MDRD) Amer 101 mL/min >60 [facility] Comment on above: GFR Calc Estimated GFR (MDRD) Non-Af Amer 83 mL/min >60 [facility] Comment on above: Non- GFR Calc Platelets bldOrdered By: Dr. Wilcox on 05-17-2022 Platelets (Bld) [#/Vol] 147 10*3/uL 150-450 [facility] Serum or plasma calcium daniel urement (mass/volume)Ordered By: Dr. Wilcox on 05-17-2022 Calcium [Mass/Vol] 9.6 mg/dL 8.5-10.1 [facility] Serum or plasma creatinine m easurement (mass/volume)Ordered By: Dr. Wilcox on 05-17-2022 Creatinine [Mass/Vol] 0.97 mg/dL 0.70-1.30 [facility] Comment on above: The validity of the calculated GFR & GFRAA in patients over 70 years has not been determined. Clinical correlation is essential. Serum or plasma urea nitroge n measurement (mass/volume)Ordered By: Dr. Wilcox on 05-17-2022 Urea nitrogen [Mass/Vol] 20 mg/dL 7-18 [facility] Thin prep Papanicolaou smear with manual screeningOrdered By: Dr. Wilcox on 05-17-2022 Thin prep Papanicolaou smear with manual screening 5 -15 [facility] Vital Signs Date Time Vital Sign Value Performing Clinician Silke rosa 06-21-2022 18:41-0500 Body temperature 97.39 [degF] Carmelita Jones PA Work Phone: [facility] 06-21-2022 18:41-0500 Body weight 107.14 kg Carmelita Jones PA Work Phone: [facility] 06-21-2022 18:41-0500 Diastolic blood pressure 100 mm[Hg] Carmelita Jones PA Work Phone: [facility] 06-21-2022 18:41-0500 Heart rate 91 /min Carmelita WATSON Work Phone: [facility] 06-21-2022 18:41-0500 Respiratory rate 21 /min Carmelita WATSON Work Phone: [facility] 06-21-2022 18:41-0500 SaO2% (BldA) [Mass fraction] 97 % Carmelita Jones PA Work Phone: [facility] 06-21-2022 18:41-0500 Systolic blood pressure 182 mm[Hg] Carmelita WATSON Work Phone: [facility] Encounters Encounter Date Encounter Type Care Provider Facility Start: 12-17-2024 ambulatory Bret Lilly Facility :[facility] Start: 03-14-2024 End: 03-14-2024 ambulatory Nancyyuliya Underwood Facility:[facility] Start: 11-06-2022 End: 11-06-2022 ambulatory [facility] Work Phone: Start: 11-06-2022 End: 11-06-2022 Patient encounter procedure [facility] Work Phone: Start: 10-06-2022 End: 10-06-2022 ambulatory [facility] Work Phone: Start: 10-06-2022 End: 10-06-2022 Patient encounter procedure [facility] Start: 06-21-2022 End: 06-21-2022 ambulatory Facility:[facility] Start: 06-21-2022 End: 06-21-2022 Subsequent hospital visit by physician [facility] Work Phone: Radiology Comment on above: Acute cough [R05.1] Start: 06-21-2022 End: 06-21-2022 Patient encounter procedure Carmelita WATSON Work Phone: [facility] Comment on above: Sinobronchitis (Prim dalia Dx); Acute cough; Hypertension, unspecified type Start: 05-17-2022 End: 05-17-2022 ambulatory [facility] Work Phone: Start: 05-17-2022 End: 05-17-2022 Patient encounter procedure [facility]/Neurology Procedures Date Procedure Procedure Detail Performing Clinician Start: 06-21-2022 Radiologic exam ches t 2 views Carmelita WATSON Work Phone: Plan of Treatment Date Care Activity Detail Author Start: 2034 RSV Vaccine (1 - 1-d ose 75+ series) RSV Vaccine (1 - 1-dose 75+ series) [facility] Start: 05-03-2030 Urine microalbumin profile DTa P,Tdap,Td Vaccine (3 - Td or Tdap) [facility] Start: 01-06-2024 Covid-19 Vaccine ( season) Covid-19 Vaccine () [facility] Start: 01-06-2024 Influenza vaccination Influenza Vacc ine (#1) [facility] Start: 05-07-2022 DEPRESSION ASSESSMENT DEPRESSION ASS ESSMENT [facility] Start: 04-15-2022 COVID-19 VACCINE (2 - Pfizer series) COVID-19 VACCINE (2 - Pfizer series) [facility] Start: 06-28-2020 Shingrix Vaccine (2 of 2) Shingrix V accine (2 of 2) [facility] Start: 2014 PROSTATE CANCER SCRE ENING DISCUSSION PROSTATE CANCER SCREENING DISCUSSION [facility] Start: 2014 Prostate specific an tigen measurement Prostate Cancer Screening Discussion [facility] Start: 2009 SHINGRIX VACCINE (1 of 2) SHINGRIX V ACCINE (1 of 2) [facility] Start: 2004 COLOGUARD (FIT-DNA) COLOGUARD (FIT-D NA) [facility] Start: [address] [facility] Start: 2004 COLORECTAL CANCER SCREENING COLORECTAL CANCER SCREENING [facility] Start: [address] COLONOGRAPHY [facility] Start: 2004 DIABETES SCREEN DIABETES SCREEN [facility] Start: 2004 Diabetes Screening Diabetes Screenin g [facility] Start: 2004 FECAL OCCULT BLOOD FECAL OCCULT BLOO D [facility] Start: 2004 Screening for malign ant neoplasm of colon [facility] Start: 2004 SIGMOIDOSCOPY SIGMOIDOSCOPY Kayce scales [facility] Start: 1994 Lipid panel Lipid Screening [facility] Start: 1994 LIPID SCREEN LIPID SCREEN [facility] Start: 1978 Urine microalbumin profile DTAP,TDAP ,TD (1 - Tdap) [facility] Start: 1977 Anxiety Screening Anxiety Screening [facility] Start: 1977 Depression Screening Depression Scre ening [facility] Start: 1977 HEPATITIS C SCREENING HEPATITIS C [facility] Start: 1977 Hepatitis C screening Hepatitis C [facility] Start: 1977 HIV SCREENING HIV SCREENING [facility] Start: 1977 HIV screening HIV Screening [facility] Immunizations Immunization Date Immunization Notes Care Provider Fa cility 03-25-2022 influenza virus vacc ine, unspecified formulation Xr [employer] Work Phone: [facility] Payers Date Payer Category Payer Self-pay [id number] 2021 Unknown [id number] 2021 Unknown ANTHEM ANTHEM BC BS FEP PPO [id number] 2021-Present [phone] [id number] [place] [address] PPO [id number] Unknown [facility] [id number] Unknown [facility] PACKAGE PLAN [id number] Unknown [id number] Unknown [id number] Social History Date Type Detail Facility Tobacco smoking status NHIS Unknown if ever smoked [facility] Work Phone: Start: 1960 Sex Assigned At Male [facility] Start: 06-21-2022 Tobacco smoking status NHIS Never smoked tobacco [facility] Start: 06-21-2022 Tobacco use and exposure Smokeless tobacco non-user [facility] Start: 1960 Sex Assigned At Not on file [facility] Start: 06-21-2022 History of Social function [facility] Start: 06-21-2022 Tobacco use panel [facility] NEGATED: Highlighted rowStart: NINF History of tobacco use Passive smoker [facility] Progress note 06-21-2022 Note Date & Type Note Facility 06-21-2022 Note HNO ID: [id number] Author: RT Deanna(R) Service: ? Author Type: Topology Professor Type: Progress Notes Filed: 06/21/2022 7:10 PM Note Text: Radiology Service Progress Note PATIENT NAME: Darryl Angulo DATE OF SERVICE: June 21, 2022 TIME: 7:01 PM PATIENT IDENTITY VERIFICATION COMPLETED USING TWO (2) IDENTIFIERS: Name and Date of confirmed by patient verbally. FALL SCREENING: Has the patient had 2 falls in the last year or 1 fall with injury or currently using an Ambulatory Assistive Device (Walker, Cane, Wheelchair, Crutches, etc.)? No PATIENT GENDER DATA: Male PATIENT RELEVANT IMPLANT DATA REVIEWED: Yes RADIOLOGY DEPARTMENT: General X-ray: Exam(s) Completed: Chest X-Ray PERIPHERAL IV DATA: Not applicable SIGNED BY: RT Deanna(R) June 21, 2022 7:01 PM [facility] Progress note 06-21-2022 Note Date & Type Note Facility 06-21-2022 Note HNO ID: [id number] Author: SHIRLEY Roland Service: ? Author Type: Physician Amortization Schedule Clerk Type: Progress Notes Filed: 06/21/2022 7:21 PM Note Text: This note was created using nxtControl. Subjective Darryl Angulo is a 62 year old male. HPI 62-year-old male presents for cough x1 month, nasal congestion. Patient states that he has had nasal congestion, sinus pressure for a month. He has also had a cough for months. He states it is a productive cough and he is coughing up green phlegm. No hemoptysis. He denies any history of asthma or COPD. No shortness of breath or chest pain. No vomiting or diarrhea. No fevers. No sick contacts that he is aware of. He has been taking [id number] DayQuil and NyQuil. Blood pressure is elevated here. States that his blood pressure always goes up and down and he has not taken his evening medication yet. No past medical history on file. No past surgical history on file. ALLERGIES Patient has no allergy information on record. MEDICATIONS amLODIPine (NORVASC) 5 mg tablet Take 5 mg by mouth once daily. ramipril (ALTACE) 10 mg capsule Take 10 mg by mouth twice daily. No family history on file. Social History Tobacco Use Smoking status: Never Passive exposure: Never Smokeless tobacco: Never Review of Systems Constitutional: Negative for chills and fever. HENT: Positive for congestion, sinus pressure and sinus pain. Negative for sore throat. Respiratory: Positive for cough. Negative for shortness of breath. Gastrointestinal: Negative for diarrhea and vomiting. Objective BP 182/100 Pulse 91 Temp 36.3 ?C (97.4 ?F) Resp 21 Wt 107.1 kg (236 lb 3.2 oz) SpO2 97% Physical Exam Vitals and nursing note reviewed. Constitutional: General: He is not in acute distress. Appearance: Normal appearance. He is not toxic-appearing. HENT: Right Ear: Tympanic membrane and ear canal normal. Left Ear: Tympanic membrane and ear canal normal. Nose: Congestion present. Right Sinus: Maxillary sinus tenderness present. Left Sinus: Maxillary sinus tenderness present. Mouth/Throat: Mouth: Mucous membranes are moist. Eyes: Conjunctiva/sclera: Conjunctivae normal. Cardiovascular: Rate and Rhythm: Normal rate and regular rhythm. Pulmonary: Effort: Pulmonary effort is normal. Breath sounds: Normal breath sounds. Skin: General: Skin is warm and dry. Neurological: Mental Status: He is alert. Assessment and Plan ASSESSMENT/PLAN: 1. Sinobronchitis - ICD9: 473.9, 490, ICD10: J32.9, J40 (primary diagnosis) -Symptoms x1 month - Will begin treatment with Doxycycline - Supportive care with plenty of fluids, rest, and analgesia prn. -Symptoms x1 month, declines COVID/flu swab. 2. Acute cough - ICD9: 786.2, ICD10: R05.1 - XR CHEST 2V FRONTAL/LAT - no acute finding. -Rx for Richard Bolivar 3. Hypertension, unspecified type - ICD9: 401.9, ICD10: I10 -Blood pressure elevated at 182/100. This was repeated and remained the same. He has not taken his evening medication yet. He denies any chest pain, headaches. Has been taking OTC medications for his symptoms, which may be increasing his BP. - Recommended regular aerobic exercise. - Recommend home blood pressure monitoring, to bring results in on next visit - Goal of BP <130/80 -Recommended continue medications as prescribed and keep blood pressure log at home to follow-up with PCP this week. -Recommended holding off on OTC cough/cold medications as this may be affecting his blood pressure. Diagnosis and treatment plan were discussed and questions were answered to the patient's satisfaction. Pt acknowledged understanding of concepts and follow up plan. Specific signs and symptoms that would indicate the need for higher level of care were discussed in detail warranting prompt ER evaluation. SHIRLEY Roland [facility] History of Present illness Narrative 06-21-2022 SHIRLEY Roland - 06/21/2022 6:56 PM EST Note Date & Type Note Facility 06-21-2022 History of Presen t illness Narrative This note was created using nxtControl. Subjective Darryl Angulo is a 62 year old male. HPI 62-year-old male presents for cough x1 month, nasal congestion. Patient states that he has had nasal congestion, sinus pressure for a month. He has also had a cough for months. He states it is a productive cough and he is coughing up green phlegm. No hemoptysis. He denies any history of asthma or COPD. No shortness of breath or chest pain. No vomiting or diarrhea. No fevers. No sick contacts that he is aware of. He has been taking [id number] DayQuil and NyQuil. Blood pressure is elevated here. States that his blood pressure always goes up and down and he has not taken his evening medication yet. No past medical history on file. No past surgical history on file. ALLERGIES Patient has no allergy information on record. MEDICATIONS amLODIPine (NORVASC) 5 mg tablet Take 5 mg by mouth once daily. ramipril (ALTACE) 10 mg capsule Take 10 mg by mouth twice daily. No family history on file. Social History Tobacco Use Smoking status: Never Passive exposure: Never Smokeless tobacco: Never Review of Systems Constitutional: Negative for chills and fever. HENT: Positive for congestion, sinus pressure and sinus pain. Negative for sore throat. Respiratory: Positive for cough. Negative for shortness of breath. Gastrointestinal: Negative for diarrhea and vomiting. Objective BP 182/100 Pulse 91 Temp 36.3 C (97.4 F) Resp 21 Wt 107.1 kg (236 lb 3.2 oz) SpO2 97% Physical Exam Vitals and nursing note reviewed. Constitutional: General: He is not in acute distress. Appearance: Normal appearance. He is not toxic-appearing. HENT: Right Ear: Tympanic membrane and ear canal normal. Left Ear: Tympanic membrane and ear canal normal. Nose: Congestion present. Right Sinus: Maxillary sinus tenderness present. Left Sinus: Maxillary sinus tenderness present. Mouth/Throat: Mouth: Mucous membranes are moist. Eyes: Conjunctiva/sclera: Conjunctivae normal. Cardiovascular: Rate and Rhythm: Normal rate and regular rhythm. Pulmonary: Effort: Pulmonary effort is normal. Breath sounds: Normal breath sounds. Skin: General: Skin is warm and dry. Neurological: Mental Status: He is alert. Assessment and Plan ASSESSMENT/PLAN: 1. Sinobronchitis - ICD9: 473.9, 490, ICD10: J32.9, J40 (primary diagnosis) -Symptoms x1 month - Will begin treatment with Doxycycline - Supportive care with plenty of fluids, rest, and analgesia prn. -Symptoms x1 month, declines COVID/flu swab. 2. Acute cough - ICD9: 786.2, ICD10: R05.1 - XR CHEST 2V FRONTAL/LAT - no acute finding. -Rx for Tessalon Perles 3. Hypertension, unspecified type - ICD9: 401.9, ICD10: I10 -Blood pressure elevated at 182/100. This was repeated and remained the same. He has not taken his evening medication yet. He denies any chest pain, headaches. Has been taking OTC medications for his symptoms, which may be increasing his BP. - Recommended regular aerobic exercise. - Recommend home blood pressure monitoring, to bring results in on next visit - Goal of BP <130/80 -Recommended continue medications as prescribed and keep blood pressure log at home to follow-up with PCP this week. -Recommended holding off on OTC cough/cold medications as this may be affecting his blood pressure. Diagnosis and treatment plan were discussed and questions were answered to the patient's satisfaction. Pt acknowledged understanding of concepts and follow up plan. Specific signs and symptoms that would indicate the need for higher level of care were discussed in detail warranting prompt ER evaluation. SHIRLEY Roland documented in this encounter [facility] Evaluation note Note Date & Type Note Facility Evaluation note No assessment information availa [facility] Work Phone: Evaluation note Note Date & Type Note Facility Evaluation note Diagnosis Sinobronchitis- Primary Unspecified sinusitis (chronic) Acute cough Hypertension, unspecified type documented in this encounter [facility] Evaluation note Note Date & Type Note Facility Evaluation note Diagnosis Acute cough documented in this encounter [facility] Chief Complaint and Reason for Visit Chief Complaint pre op Chief Complaint Hyperlipidemia, unsp ecified Chief Complaint Hyperlipidemia, unsp ecified Gout, unspecified Summary Purpose Family History No Family History Records FoundNo Family History Records Found Advance Directives No Advanced Directives Records FoundNo Advanced Directives Records Found Additional Source Comments Care Teams (unrecognized sec tion and content) Team Status: Active Member Role Status Dates Dr. Anthony Soria MD Family Provider Active Dr. Sandor Barrera MD Primary Care Provider Active Team Status: Inactive Member Role Status Dates Dr. Sandor Barrera MD Primary Care Provider Active Dr. Nick Wilcox DO Attending Provider, Referring Provider Active Team Status: Inactive Member Role Status Dates Dr. Sandor Barrera MD Primary Care Provider Active Nancy Underwood NP-C Attending Provider, Referring Prov ider Active Goals (unrecognized section and content) Goals may be documented in a n alternate sectionGoals may be documented in an alternate sectionGoals may be documented in an alternate section Source Comments (unrecognize d section and content) In the event this informatio n is protected by the Federal Confidentiality of Alcohol and Drug Abuse Patient Records regulations: The Federal rules restrict any use of the information to criminally investigate or prosecute any alcohol or drug abuse patient.[facility] event this information is protected by the Federal Confidentiality of Alcohol and Drug Abuse Patient Records regulations: The Federal rules restrict any use of the information to criminally investigate or prosecute any alcohol or drug abuse patient.[facility] Reason for Visit (unrecogniz ed section and content) Reason Comments Cough Sore throat, chest c ongestion x 1 month (unrecognized sect ion and content) No Status Records FoundNo Status Records Found INFORMATION SOURCE (unrecogn ized section and content) DATE CREATED AUTHOR 06/23/2022 [facility] DATE CREATED AUTHOR AUTHOR'S ORGANIZ ATION 10/08/2024 [facility] FOR RECORDS PERTAINING TO PATIENTS WHO ARE OR HAVE BEEN ENROLLED IN A CHEMICAL DEPENDENCY/SUBSTANCEABUSE PROGRAM, SOME INFORMATION MAY BE OMITTED. This clinical summary was aggregated from multiple sources. Caution should be exercised in using it in the provision of clinical care. This summary normalizes information from multiple sources, and as a consequence, information in this document may materially change the coding, format and clinical context of patient data. In addition, data may be omitted in some cases. CLINICAL DECISIONS SHOULD BE BASED ON THE PRIMARY CLINICAL RECORDS. [email or web address] [facility]. provides no warranty or guarantee of the accuracy or completeness of information in this document.
--- NOTE | 2024-10-19 14:40 | RAD_ITS ---
PROCEDURE: L/S SPINE MIN 4 VIEWS 10/19/2024 REASON FOR EXAM: ASSESS HARDWARE, ARTHRITIS TECHNIQUE: L/S SPINE MIN 4 VIEWS COMPARISON: None. FINDINGS: Mild levoscoliosis apex at L3. Prior decompression and fusion with unremarkable transpedicular screws at L4-L5. Grade 1 anterolisthesis of L2 on L3 measuring 4.7 mm. There are diffuse spondylotic changes. Findings are demonstrated to by diffuse disc space narrowing, osteophyte formation and degenerative endplate sclerosis. There is diffuse facet joint arthropathy with secondary bilateral neural foramina narrowing. No fracture or dislocation is seen. No aggressive lytic or blastic bony lesion is noted. RAD/L/S Spine Min 4 Views IMPRESSION: No evidence for acute abnormality. Unremarkable spinal metallic hardware. Diffuse spondylosis. Reading Location: [facility]
--- NOTE | 2024-10-19 14:42 | RAD_ITS ---
PROCEDURE: HIP, UNI W/ PELVIS 2-3 VIEWS 10/19/2024 REASON FOR EXAM: PAIN TECHNIQUE: HIP, UNI W/ PELVIS 2-3 VIEWS COMPARISON: None FINDINGS: Alignment is within normal limits. Mild hip joint space narrowing and subtle acetabulum sclerosis. No focal lesion noted. Soft tissues appear normal. RAD/HIP, UNI W/ Pelvis 2-3 Views IMPRESSION: No acute osseus abnormality seen. Mild hip arthritic changes. Reading [facility]
== END | disposition home or self-care (01) ==
LOC: RAD 14:33
PROVIDERS: PCP Nurse Practitioner Family; Visit Provider Nurse Practitioner Family
DX: M54.42 Lumbago with sciatica, left side (principal)
CPT/HCPCS: 72110; 73502

== ENCOUNTER 2024-12-17 12:21 | Day surgery (SDC) | payer BC, SELFPAY ==
[2024-12-17] VITALS (8 sets, daily range): BP systolic 132–165; BP diastolic 86–99; PULSE 56–73; RESP 16; TEMP 36.1–36.9; O2SAT 93–97; BMI 30.4
--- NOTE | 2024-12-17 12:29 | HP.PCM_ITS ---
[facility] - General General Date of Admission: 12/17/24 Date of Service: 12/17/24 Chief Complaint: Screening colonoscopy HPI Narrative CORRIE MARIANO, is a 64 M who presents Today for screening colonoscopy. He is not having any problems with his bowels. He has a past medical history of hypertension and gout. Both of those diagnoses are controlled with medical therapy. [facility] Medical History Wears glasses History of steroid therapy Gout Back pain Non-smoker History of pain when walking History of echocardiogram Hypertension Home Medications ?Medication ?Instructions ?Recorded ?Last Taken ?Type allopurinol 100 mg tablet 100 mg PO DAILY 12/15/24 Unk nown History amlodipine 5 mg tablet 5 mg PO DAILY 12/15/24 Unkno wn History hydrochlorothiazide 25 mg tablet 25 mg PO DAILY Unknown History ramipril 10 mg capsule 10 mg PO BID 12/15/24 Unknow n History Allergy/AdvReac Type Severity Reaction Status Date / Time No Known Allergies Allergy Verified 12/15/24 11:27 Surgical History History of carpal tunnel release of both wrists History of back surgery Social History Smoking Status: Never smoker ROS Constitutional Constitutional: Denies fatigue, fever(s), poor appetite, weight gain or weight loss Gastrointestinal Gastrointestinal: Denies belching, bloating, change in bowel habits, change in stool character, chewing difficulty, coffee ground emesis, constipation, cramping, diarrhea, dyspepsia, dysphagia, early satiety, excessive flatus, fecal incontinence, heartburn, hematemesis, hematochezia, hemorrhoids, loose stools, melena, nausea, odynophagia, rectal bleeding, tenesmus, vomiting or weight changes Physical Exam Const alert, oriented x3, no apparent distress and healthy appearing General Appearance: cooperative GI normal to inspection, nondistended, normoactive bowel sounds, soft to palpation, non-tender and non-distended Percussion: normal to percussion Rectal Exam: deferred Assessment & Plan Assessment/Plan (1) Encounter for screening colonoscopy: PLAN: He was explained alternatives, risk and benefits including not withstanding bleeding, infection, sepsis, perforation, need for emergent urgent . He will have an ASA of 3.
[2024-12-17] MEDS: Lactated Ringers 1,000 ML 15 ML IV (12:39)
--- NOTE | 2024-12-17 12:58 | PRE.ANES_ITS ---
ASA Classification* ASA Classification ASA Classification: 2 Assessment & Plan Anesthesia* Anesthesia Assessment Anesthesia Assessment: Discussed sedation and/or anesthesia options, risks, benefits, and alternatives with patient/parents/legal guardian/POA. Questions invited. The patient/parents/legal guardian/POA seems to understand and agrees to proceed with anesthesia plan. Reviewed the physical assessment, medical history, allergy history and patient home medications list prior to surgery/procedure/anesthetic and documented any changes. Performed airway and anesthesia risk assessments. Anesthesia Type Anesthesia Type: MAC History Source History Obtained from:: Patient and Chart Anesthesia Focused Assessment* Temperature: 97.3 F Pulse Rate: 73 Blood Pressure: 165/99 Respiratory Rate: 16 Pulse Ox: 96 Oxygen Delivery Method: Room Air Airway Assessment Mouth opens: >3 cm Mallampati Score: II Teeth Condition: Intact Neck Range of motion (ROM): Full ROM Labs Anesthesia Preop lab: CBC WBC 4.4 K/mm3 (4.4-11.0) 03/14/24 08:18 03/14/24 RBC 4.66 M/mm3 (4.6-6.2) 03/14/24 08:18 03/14/24 Hgb 15.2 g/dL (13.0-16.5) 03/14/24 08:18 03/14/24 Hct 42.3 % (40-54) 03/14/24 08:18 03/14/24 Plt Count 157 K/mm3 (150-450) 03/14/24 08:18 03/14/24 CHEMISTRY Potassium 4.1 mmol/L (3.5-5.1) 03/14/24 08:18 03/14/24 Sodium 137 mmol/L (136-145) 03/14/24 08:18 03/14/24 BUN 18 mg/dL (7-18) 03/14/24 08:18 03/14/24 Creatinine 1.00 mg/dL (0.70-1.30) 03/14/24 08:18 03/14/24 Glucose 126 mg/dL (74-106) H 03/14/24 08:18 03/14/24 COAG Pre-Assessment Diagnosis/Proposed Procedure Planned Operative Procedure(s): COLONOSCOPY-OA Anesthesia History Anesthesia History - manager diversity: Anesthesia History - manager diversity Hx Hospitalization No 12/15/24 11:35 Any Problems With Anesthesia No 12/15/24 11:35 Cholinesterase deficiency No 12/15/24 11:35 You/Your Family Experience No 12/15/24 11:35 fever (hyperthermia) with Relationship Recent Exposure to Contagious No 12/17/24 12:36 Disease Does patient have nerve No 12/15/24 11:35 stimulator Patient instructed to have device shut off --Does patient have Pacemaker No 12/17/24 12:36 or ICD? When Was Last Pacemaker Check QUESTION #4 FULL TEXT: You/Your Family Experience fever (hyperthermia) with Anesthesia Last Oral Intake Last Oral intake: Last Oral Intake NPO since 10:30 12/17/24 12:36 Meds taken in AM with sips of Yes 12/17/24 12:36 water? Meds patient instructed to take am of surgery PONV PONV - manager diversity: PONV - manager diversity Female No 12/15/24 11:35 HX of Motion Sickness No 12/15/24 11:35 HX of N/V After Surgery No 12/15/24 11:35 Non-Smoker Yes 12/15/24 11:35 Duration of Surgery greater No 12/15/24 11:35 than 60 minutes Number of Risk Factors 1 12/15/24 11:35 PONV Score Low Risk 12/15/24 11:35 Height & Weight Height & Weight: Anesthesia: Height & Weight Height 6 ft 12/17/24 12:36 Weight: 102 kg 12/17/24 12:36 Body Mass Index (BMI) 30.4 12/17/24 12:36 Respiratory Assessment Respiratory Assessment - manager diversity: Respiratory Tract Infection Hx - manager diversity Hx Respiratory Tract Infection No 12/15/24 11:35 STOP Sleep Apnea STOP Sleep Apnea - manager diversity: STOP Sleep Apnea - manager diversity Hx Hypertension Yes: FLUCTUATES 12/15/24 11:35 Hx Sleep Apnea No 12/15/24 11:35 CPAP BIPAP Do you snore loudly (louder No 12/15/24 11:35 than talking or can be heard Do you often feel tired/ No 12/15/24 11:35 fatigued/ sleepy during daytime? Has anyone observed you stop No 12/15/24 11:35 breathing during sleep? STOP Results Negative 12/15/24 11:35 QUESTION #5 FULL TEXT : Do you snore loudly (louder than talking or can be heard through closed doors)? 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 Specify any problems Hx of Preganancy in last 3 N/A 12/15/24 11:35 Months Nurse Filling Out Transfusion VCHRISTIN 12/15/24 11:35 & Questions: Date: 12/15/24 12/15/24 11:35 Time: 11:36 12/15/24 11:35 Patient unable to answer at this time (ie. confused, unrespo /Reproduction History /Reproductive History - manager diversity: /Reproductive Hx- manager diversity Hx Now Gestational Age (in weeks): EDC: Hx Hx Para Hx Section SAB Active Medications Active Medications: Current Medications Generic Name Dose Route Start Last Admin Trade Name Freq PRN Reason Stop Dose Admin Lactated Ringer's 1,000 mls @ 15 mls/hr 12/17/24 12:30 12/17/24 12:39 IV 15 mls/hr .Q48H LUIZ Administration PFSH Medical History Wears glasses History of steroid therapy Gout Back pain Non-smoker History of pain when walking History of echocardiogram Hypertension Home Medications ?Medication ?Instructions ?Recorded ?Last Taken ?Type allopurinol 100 mg tablet 100 mg PO DAILY 12/15/24 Unk nown History amlodipine 5 mg tablet 5 mg PO DAILY 12/15/2412/17 06:30 History hydrochlorothiazide 25 mg tablet 25 mg PO DAILY Unknown History ramipril 10 mg capsule 10 mg PO BID 12/15/24 Unknow n History Allergy/AdvReac Type Severity Reaction Status Date / Time No Known Allergies Allergy Verified 12/17/24 12:35 Surgical History History of carpal tunnel release of both wrists History of back surgery Social History Smoking Status: Never smoker Review of Systems (Anesthesia) ROS Narrative System reviewed and no additional complaints, except as documented.
--- NOTE | 2024-12-17 13:30 | COLBX_PTH ---
PATIENT: CORRIE MARIANO LOC: EN U#:[id number] AGE/SX: 64/M ROOM: RE12/17/[address]: Dr. Bret Lilly DO : 1960 BED: DIS: 12/17/2024 SPEC #: [id number] RECD: 12/17/24 15:16 STATUS: LEODAN KAREN #: [id number] VIVEK: 12/17/24 13:[address]: Bret Lilly DEPT: SURGICAL PATHOLOGY RECD BY: Darin Meraz ENTERED: 12/17/24 15:31 SP TYPE: COLON BX OTHR DR: Nancy Dixon, SUPERVISOR CALIBRATION-C Tissues: A - Cecum, NOS B - Sigmoid colon biopsy Procedures: Surgery Specimen Level IV HEADER OPERATION: Colonoscopy with biopsy PRE-OP DIAGNOSIS: Encounter for screening colonoscopy TISSUE SUBMITTED: A- Cecum polyp biopsy, B- Sigmoid polyp biopsy MICROSCOPIC DIAGNOSIS A. Cecum, colon, polyp, biopsy: - Tubular adenoma. - Sessile serrated lesion. B. Sigmoid colon, polyp, biopsy: - Tubular adenoma. MICROSCOPIC DESCRIPTION Slides are reviewed. GROSS DESCRIPTION A. Received in fixative is one container labeled with the patient's name and designated Cecum polyp biopsy. The specimen consists of two irregular fragments of light proctor soft tissue that measure 0.3 and 0.5 cm. The specimen is totally submitted in one cassette. B. Received in fixative is one container labeled with the patient's name and designated Sigmoid polyp biopsy. The specimen consists of one irregular fragment of light proctor soft tissue that measures 0.5 cm. The specimen is totally submitted in one cassette. TN 12/17/2024 CPT:48565j2
--- NOTE | 2024-12-17 13:46 | OP.COLON_ITS ---
Patient Name: Darryl Angulo Procedure Date: 12/17/2024 1:13 PM Date of : 1960 Age: 64 Procedure: Colonoscopy Indications: Screening for colorectal malignant neoplasm Providers: Bret Lilly DO Referring MD: Aravind Chavez Medicines: Monitored Anesthesia Care Patient Profile: This is a 64 year old male. Refer to note in patient chart for documentation of history and physical. Last Colonoscopy: several years ago. Complications: No immediate complications. Procedure: Pre-Anesthesia Assessment: - Prior to the procedure, a History and Physical was performed, and patient medications and allergies were reviewed. The patient is competent. The risks and benefits of the procedure and the sedation options and risks were discussed with the patient. All questions were answered and informed consent was obtained. Patient identification and proposed procedure were verified by the physician in the pre-procedure area. Mental Status Examination: alert and oriented. Airway Examination: normal oropharyngeal airway and neck mobility. Respiratory Examination: clear to auscultation. CV Examination: normal. Prophylactic Antibiotics: The patient does not require prophylactic antibiotics. Prior Anticoagulants: The patient has taken no anticoagulant or antiplatelet agents except for NSAID medication. ASA Grade Assessment: II - A patient with mild systemic disease. After reviewing the risks and benefits, the patient was deemed in satisfactory condition to undergo the procedure. The anesthesia plan was to use monitored anesthesia care (MAC). Immediately prior to administration of medications, the patient was re-assessed for adequacy to receive sedatives. The heart rate, respiratory rate, oxygen saturations, blood pressure, adequacy of pulmonary ventilation, and response to care were monitored throughout the procedure. The physical status of the patient was re-assessed after the procedure. After I obtained informed consent, the scope was passed under direct vision. Throughout the procedure, the patient's blood pressure, pulse, and oxygen saturations were monitored continuously. The pediatric colonoscope was introduced through the anus and advanced to the cecum, identified by appendiceal orifice and ileocecal valve. The colonoscopy was performed without difficulty. The patient tolerated the procedure well. The quality of the bowel preparation was adequate. The ileocecal valve, appendiceal orifice, and rectum were photographed. Scope In: 1:28:23 PM Scope Withdrawal Time 0 hours 8 minutes 39 seconds Scope Out: 1:40:30 PM Total Procedure Duration Time 0 hours 12 minutes 7 seconds Findings: The perianal and digital rectal examinations were normal. Multiple small-mouthed diverticula were found in the recto-sigmoid colon, sigmoid colon and descending colon. Three sessile polyps were found in the sigmoid colon and cecum. The polyps were 4 mm in size. These polyps were removed with a jumbo cold forceps. Resection and retrieval were complete. Verification of patient identification for the specimen was done. Estimated blood loss was minimal. The exam was otherwise without abnormality on direct and retroflexion views. Impression: - Diverticulosis in the recto-sigmoid colon, in the sigmoid colon and in the descending colon. There was also recent diverticulitis seen. - Three 4 mm polyps in the sigmoid colon and in the cecum, removed with a jumbo cold forceps. Resected and retrieved. - The examination was otherwise normal on direct and retroflexion views. Recommendation: - Discharge patient to home. - Resume previous diet. - Continue present medications. - Await pathology results. - Repeat colonoscopy in 5 years for surveillance. - High fiber diet Procedure Code(s): --- Professional --- 62704, Colonoscopy, flexible; with biopsy, single or multiple CPT copyright 2021 [employer] [place] [employer]. All rights reserved. The codes documented in this report are preliminary and upon raftsman review may be revised to meet current compliance requirements. Bret Lilly DO 12/17/2024 1:46:14 PM This report has been signed electronically. Number of Addenda: 0 Note Initiated On: 12/17/2024 1:13 PM
--- NOTE | 2024-12-17 13:46 | OP.PROVAT_ITS ---
12/17/2024 Aravind Chavez Re : Colonoscopy procedure for Darryl Angulo Dear Zack This procedure was performed on Tuesday, December 17, 2024. My impressions and recommendations are as follows: Impressions : - Diverticulosis in the recto-sigmoid colon, in the sigmoid colon and in the descending colon. There was also recent diverticulitis seen. - Three 4 mm polyps in the sigmoid colon and in the cecum, removed with a jumbo cold forceps. Resected and retrieved. - The examination was otherwise normal on direct and retroflexion views. Recommendations : - Discharge patient to home. - Resume previous diet. - Continue present medications. - Await pathology results. - Repeat colonoscopy in 5 years for surveillance. - High fiber diet My findings are described in the full procedure note, which is enclosed. If I can be of further assistance, please feel free to contact me at . Sincerely, Bret Lilly, 12/17/2024 1:46:14 PM This report has been signed electronically.
--- NOTE | 2024-12-17 13:53 | PCM.POST.ANE ---
Anesthesia: Postop Eval I Current Vital Signs Temperature: 97 F Pulse Rate: 67 Blood Pressure: 132/91 Respiratory Rate: 16 Pulse Ox: 93 Oxygen Delivery Method: Room Air Assessment Airway patent: Yes Spontaneous unlabored respirations: Yes Mental status: Asleep nausea: No Vomiting: No Anesthesia Complication: No Fluid Hydration Crystalloid volume administer (ml): 600 Total IV fluid infused: 600 Progress Note Anesthesia document: Postop Eval 1 completed: Yes
--- NOTE | 2024-12-17 16:31 | PCM.POSTANE2 ---
Anesthesia Postop Eval I Sum Postop Eval Completion status Anesthesia document: Postop Eval 1 completed: Yes Anesthesia Postop Eval I Summary Anesthesia Postop Eval I Summary: Anesthesia Postop Eval I: Assessment Summary Airway patent Yes 12/17/24 13:54 [email or web address] Spontaneous unlabored Yes 12/17/24 13:54 [email or web address] respirations Mental status Asleep 12/17/24 13:54 [email or web address] nausea No 12/17/24 13:54 [email or web address] Vomiting No 12/17/24 13:54 [email or web address] Anesthesia Postop Eval I: Fluid Summary Crystalloid volume administer 600 12/17/24 13:54 [email or web address] (ml) Colloids volume administered ( ml) Blood Product volume administered (ml) Total IV fluid infused 600 12/17/24 13:54 [email or web address] Anesthesia Postop Eval I: Summary Notes Anesthesia Complication No 12/17/24 13:54 [email or web address] Anesthesia Complication Comment: Post-operative progress note Anesthesia: Postop Eval II Evaluation Mental status: Awake Pain Level: 0 nausea: No Vomiting: No
--- OUTSIDE RECORDS SUMMARY | 2024-12-17 19:48 | XMS RPT_ITS | CCD ---
Author Organization [facility] Care Team Providers Care Tugger Operator Name Role Phone Unavailable Primary Care Provider Unavailabl e Zack INTELLIGENT SYSTEMS ENGINEER-C, Nancy Primary Care Provider [phone] Zack INTELLIGENT SYSTEMS ENGINEER-C, Nancy Attending Provider Zack, Nancy Primary Care Unavailable Zack, Nancy Attending Unavailable Zack, Nancy Referring Unavailable Zack, Nancy Primary Care Unavailable Zack, Nancy Attending Unavailable Zack, Nancy Primary Care Unavailable Zack, Nancy Referring Unavailable Bret Lilly Attending Unavailable Zack INTELLIGENT SYSTEMS ENGINEER-C, Nancy Referring Provider [phone] Dr. Bret Lilly DO Attending Provider Friend Dr. Bret PEDRAZA Other Provider Medications Current Medications Medication Drug Class(es) Dates Sig (Normalized) Sig (Original) allopurinol 100 mg oral tablet (1 source) Xanthine Oxidase Inhibitor Start: 12-15-2024 take 1 tablet by mouth once daily Allopurinol 100 mg tablet Active 100 mg PO DAILY December 15, 2024 12:00am amLODIPine 5 mg oral tablet (3 sources) Dihydropyridine Calcium Channel Marlena Start: 12-15-2024 take 1 tablet by mouth once daily Amlodipine 5 mg tablet Active 5 mg PO DAILY December 15, 2024 12:00am Start: 06-02-2022 take 1 tablet by shanthi th once daily amLODIPine (NORVASC) 5 mg tablet Take 5 mg by mouth once daily. 06/02/2022 Active Comment on above: Take 5 mg by mouth o nce daily. benzonatate 100 mg oral capsule (2 sources) Non-narcotic Antitussive Start: 2022 take 1 capsule by mouth every eight hours as needed benzonatate (TESSALON PERLES) 100 mg capsule Take 1 capsule by mouth three times daily as needed for cough. 14 capsule 06/21/2022 Active Comment on above: Take 1 capsule by mo ut three times daily as needed for cough. doxycycline monohydrate 100 mg oral tablet (1 source) Tetracycline-clas s Drug Start: 2022 End: 2022 take 1 tablet by mouth twice daily doxycycline monohydrate 100 mg tablet Take 1 tablet by mouth twice daily for 5 days. 10 tablet 0 06/21/2022 06/26/2022 Active Comment on above: Take 1 tablet by [facility] twice daily for 5 days. hydroCHLOROthiazide 25 mg oral tablet (1 source) Thiazide Diuretic Start: 2024 take 1 tablet by mouth once daily Hydrochlorothiazide 25 mg tablet Active 25 mg PO DAILY December 15, 2024 12:00am ramipril 10 mg oral capsule (3 sources) Angiotensin Converting Enzyme Inhibitor Start: 2024 take 1 capsule by mouth twice daily Ramipril 10 mg capsule Active 10 mg PO TWICE A DAY December 15, 2024 12:00am Start: 04-23-2022 take 1 capsule by mo [facility] twice daily ramipril (ALTACE) 10 mg capsule [...] Cough; Translations: [Acute cough] 06-21-2022 Episodic Other screening for suspected conditions (not mental disorders or infectious disease) (2 sources) Patient encounter status; Translations: [Encounter for screening for malignant neoplasm of colon] 12-17-2024 Episodic Other upper respiratory infections (1 source) Chronic sinusitis; Translations: [Chronic sinusitis, unspecified] Chronic Spondylosis; intervertebral disc disorders; other back problems (1 source) Lumbago with sciatica, left side; Translations: [Lumbago with sciatica, left side] Onset: 10-24-2024 Episodic Unclassified (1 source) Acute cough; Translations: [Acute cough] Onset: 06-21-2022 Results Test Name Value Interpretation Reference Range Facility HIP, UNI W/ Pelvis 2-3 Views on 10-19-2024 HIP, UNI W/ Pelvis 2-3 Views [facility] Imaging Services [address] [place] [address] HIP, UNI W/ Pelvis 2-3 Views MR#: [id number] Acct: [id number] Name: DARRYL ANGULO Rep #: [id number] : 1960 M 64 From: Jarrell luo MD PCP: ARAVIND Chavez Status: REG CLI Study: HIP, UNI W/ Pelvis 2-3 Views Date of Exam: Exam# [id number] Ordering Dr: Nancy Underwood PROCEDURE: HIP, UNI W/ PELVIS 2-3 VIEWS 10/19/2024 REASON FOR EXAM: PAIN TECHNIQUE: HIP, UNI W/ PELVIS 2-3 VIEWS COMPARISON: None FINDINGS: Alignment is within normal limits. Mild hip joint space narrowing and subtle acetabulum sclerosis. No focal lesion noted. Soft tissues appear normal. RAD/HIP, UNI W/ Pelvis 2-3 Views IMPRESSION: No acute osseus abnormality seen. Mild hip arthritic changes. Reading Location: [place] [address] CC: INTELLIGENT SYSTEMS ENGINEER-C Nacny Underwood Production Dispatcher: Signed Normal [facility] L/S Spine Min 4 Viewson 10-05 L/S Spine Min 4 Views [facility] Imaging Services [address] [place] [address] L/S Spine Min 4 Views MR#: [id number] Acct: [id number] Name: DARRYL ANGULO Rep #: [id number] : 1960 M 64 From: Jarrell luo MD PCP: ARAVIND Chavez Status: REG CLI Study: L/S Spine Min 4 Views Date of Exam: 10/19/24 Exam# [id number] Ordering Dr: Nancy Underwood PROCEDURE: L/S SPINE MIN 4 VIEWS 10/19/2024 REASON FOR EXAM: ASSESS HARDWARE, ARTHRITIS TECHNIQUE: L/S SPINE MIN 4 VIEWS COMPARISON: None. FINDINGS: Mild levoscoliosis apex at L3. Prior decompression and fusion with unremarkable transpedicular screws at L4-L5. Grade 1 anterolisthesis of L2 on L3 measuring 4.7 mm. There are diffuse spondylotic changes. Findings are demonstrated to by diffuse disc space narrowing, osteophyte formation and degenerative endplate sclerosis. There is diffuse facet joint arthropathy with secondary bilateral neural foramina narrowing. No fracture or dislocation is seen. No aggressive lytic or blastic bony lesion is noted. RAD/L/S Spine Min 4 Views IMPRESSION: No evidence for acute abnormality. Unremarkable spinal metallic hardware. Diffuse spondylosis. Reading [facility] [place] [place] [address] CC: ARAVIND Underwood Production Dispatcher: Signed Normal [facility] CBC W/Diff, Automatedon 11-0 Absolute Lymph 1.15 X10 3/uL Normal 0.83-4.51 [facility] Comment on above: Performed By: #### L 500.4050, L501.9910, L501.1400, L500.4100, L501.9985, L100.0100 #### [facility] [address] [place], [address] Absolute Neut 2.7 X10 3/uL Normal 2.0-7.7 [facility] Comment on above: Performed By: #### L 500.4050, L501.9910, L501.1400, L500.4100, L501.9985, L100.0100 #### [facility] [address] [place], [address] Basophils/100 WBC (Bld) 0.5 % Normal 0-1 [facility] Comment on above: Performed By: #### L 500.4050, L501.9910, L501.1400, L500.4100, L501.9985, L100.0100 #### [facility] [address] [place], [address] Eosinophils/100 WBC (Bld) 2.0 % Normal 0-5 [facility] Comment on above: Performed By: #### L 500.4050, L501.9910, L501.1400, L500.4100, L501.9985, L100.0100 #### [facility] [address] [place], [address] Erythrocyte distribution width (RBC) [Ratio] 12.0 % Normal 11.6-14.6 [facility] Comment on above: Performed By: #### L 500.4050, L501.9910, L501.1400, L500.4100, L501.9985, L100.0100 #### [facility] [address] [place], [address] Hematocrit (Bld) [Volume fraction] 42.3 % Normal 40-54 [facility] Comment on above: Performed By: #### L 500.4050, L501.9910, L501.1400, L500.4100, L501.9985, L100.0100 #### [facility] [address] [place], [address] Hemoglobin (Bld) [Mass/Vol] 15.2 g/dL Normal 13.0-16.5 [facility] Comment on above: Performed By: #### L 500.4050, L501.9910, L501.1400, L500.4100, L501.9985, L100.0100 #### [facility] [address] [place], [address] IG% 0.200 Normal 0.0-0.9 [facility] Comment on above: Result Comment: IG% - Immature Granulocytes (promyelocytes, myelocytes and metamyelocytes) > 1% indicates that a LEFT SHIFT is Present. Performed By: #### L 500.4050, L501.9910, L501.1400, L500.4100, L501.9985, L100.0100 #### [facility] [address] [place], [address] Lymphocytes/100 WBC (Bld) 26.1 % Normal 19-41 [facility] Comment on above: Performed By: #### L 500.4050, L501.9910, L501.1400, L500.4100, L501.9985, L100.0100 #### [facility] [address] [place], [address] MCH (RBC) [Entitic mass] 32.6 pg High 27.0-32.0 [facility] Comment on above: Performed By: #### L 500.4050, L501.9910, L501.1400, L500.4100, L501.9985, L100.0100 #### [facility] [address] [place], [address] MCHC (RBC) [Mass/Vol] 35.9 g/dL Normal 32-36 [facility] Comment on above: Performed By: #### L 500.4050, L501.9910, L501.1400, L500.4100, L501.9985, L100.0100 #### [facility] [address] [place], [address] MCV (RBC) [Entitic vol] 90.8 fL Normal 80-94 [facility] Comment on above: Performed By: #### L 500.4050, L501.9910, L501.1400, L500.4100, L501.9985, L100.0100 #### [facility] [address] [place], [address] Monocytes/100 WBC (Bld) 9.5 % Normal 0-10 [facility] Comment on above: Performed By: #### L 500.4050, L501.9910, L501.1400, L500.4100, L501.9985, L100.0100 #### [facility] [address] [place], [address] Neutrophils/100 WBC (Bld) 61.7 % Normal 47-70 [facility] Comment on above: Performed By: #### L 500.4050, L501.9910, L501.1400, L500.4100, L501.9985, L100.0100 #### [facility] [address] [place], [address] Nucleated RBC (Bld) [#/Vol] 0 10*3/uL Normal 0-5 [facility] Comment on above: Performed By: #### L 500.4050, L501.9910, L501.1400, L500.4100, L501.9985, L100.0100 #### [facility] [address] [place], [address] Platelet mean volume (Bld) [Entitic vol] 9.5 fL Normal 6.2-12.0 [facility] Comment on above: Performed By: #### L 500.4050, L501.9910, L501.1400, L500.4100, L501.9985, L100.0100 #### [facility] [address] [place], [address] Platelets (Bld) [#/Vol] 157 10*3/uL Normal 150-450 [facility] Comment on above: Performed By: #### L 500.4050, L501.9910, L501.1400, L500.4100, L501.9985, L100.0100 #### [facility] [address] [place], [address] RBC (Bld) [#/Vol] 4.66 10*6/uL Normal 4.6-6.2 [facility] Comment on above: Performed By: #### L 500.4050, L501.9910, L501.1400, L500.4100, L501.9985, L100.0100 #### [facility] [address] [place], [address] RDW SD 39.4 fl Normal 35.1-43.9 [facility] Comment on above: Performed By: #### L 500.4050, L501.9910, L501.1400, L500.4100, L501.9985, L100.0100 #### [facility] [address] [place], [address] WBC (Bld) [#/Vol] 4.4 10*3/uL Normal 4.4-11.0 [facility] Comment on above: Performed By: #### L 500.4050, L501.9910, L501.1400, L500.4100, L501.9985, L100.0100 #### [facility] [address] [place], [address] [facility] 03-14-2024 Albumin [Mass/Vol] 3.7 g/dL Normal 3.2-5.0 [facility] Comment on above: Performed By: #### L 500.4050, L501.9910, L501.1400, L500.4100, L501.9985, L100.0100 #### [facility] [address] [place], [address] Albumin/Globulin [Mass ratio] 1.0 {ratio} Normal 0.9-2.4 [facility] Comment on above: Performed By: #### L 500.4050, L501.9910, L501.1400, L500.4100, L501.9985, L100.0100 #### [facility] [address] [place], [address] ALK P 82 U/L Normal 45-117 [facility] Comment on above: Performed By: #### L 500.4050, L501.9910, L501.1400, L500.4100, L501.9985, L100.0100 #### [facility] [address] [place], [address] ALT [Catalytic activity/Vol] 51 U/L Normal 16-61 [facility] Comment on above: Performed By: #### L 500.4050, L501.9910, L501.1400, L500.4100, L501.9985, L100.0100 #### [facility] [address] [place], [address] AST [Catalytic activity/Vol] 30 U/L Normal 15-37 [facility] Comment on above: Performed By: #### L 500.4050, L501.9910, L501.1400, L500.4100, L501.9985, L100.0100 #### [facility] [address] [place], [address] Bilirubin [Mass/Vol] 0.50 mg/dL Normal 0.20-1.00 [facility] Comment on above: Result Comment: For patients on eltrombopag therapy, use of [employer] TBIL is not recommended. Performed By: #### L 500.4050, L501.9910, L501.1400, L500.4100, L501.9985, L100.0100 #### [facility] [address] [place], [address] BUN/CRE 18.0 RATIO Normal 10-20 [facility] Comment on above: Performed By: #### L 500.4050, L501.9910, L501.1400, L500.4100, L501.9985, L100.0100 #### [facility] [address] [place], [address] CA,Total 9.1 mg/dL Normal 8.5-10.1 [facility] Comment on above: Performed By: #### L 500.4050, L501.9910, L501.1400, L500.4100, L501.9985, L100.0100 #### [facility] [address] [place], [address] Chloride [Moles/Vol] 107 mmol/L Normal 98-107 [facility] Comment on above: Performed By: #### L 500.4050, L501.9910, L501.1400, L500.4100, L501.9985, L100.0100 #### [facility] [address] [place], [address] CO2 [Moles/Vol] 25.0 mmol/L Normal 21.0-32.0 [facility] Comment on above: Performed By: #### L 500.4050, L501.9910, L501.1400, L500.4100, L501.9985, L100.0100 #### [facility] [address] [place], [address] Creatinine [Mass/Vol] 1.00 mg/dL Normal 0.70-1.30 [facility] Comment on above: Result Comment: The validity of the calculated GFR GFRAA in patients over 70 years has not been determined. Clinical correlation is essential. Performed By: #### L 500.4050, L501.9910, L501.1400, L500.4100, L501.9985, L100.0100 #### [facility] [address] [place], [address] EST GFR - AA 96 mL/min Normal >60 [facility] Comment on above: Result Comment: Afri can Bel[place]ian GFR Calc Performed By: #### L 500.4050, L501.9910, L501.1400, L500.4100, L501.9985, L100.0100 #### [facility] [address] [place], [address] GAP 5 Normal 5-15 [facility] Comment on above: Performed By: #### L 500.4050, L501.9910, L501.1400, L500.4100, L501.9985, L100.0100 #### [facility] [address] [place], [address] GFR/1.73 sq M.predicted among non-blacks MDRD (S/P/Bld) [Vol rate/Area] 80 mL/min/{1.73_m2} Normal >60 [facility] Comment on above: Result Comment: Non- GFR Calc Performed By: #### L 500.4050, L501.9910, L501.1400, L500.4100, L501.9985, L100.0100 #### [facility] [address] [place], [address] Globulin (S) [Mass/Vol] 3.8 g/dL Normal 2.2-4.2 [facility] Comment on above: Performed By: #### L 500.4050, L501.9910, L501.1400, L500.4100, L501.9985, L100.0100 #### [facility] [address] [place], [address] Glucose [Mass/Vol] 126 mg/dL High 74-106 [facility] Comment on above: Result Comment: Fast ing Glucose result greater than or equal to 126 mg/dL suggests DIABETES MELLITUS per A.D.A. criteria. Performed By: #### L 500.4050, L501.9910, L501.1400, L500.4100, L501.9985, L100.0100 #### [facility] [address] [place], [address] Potassium [Moles/Vol] 4.1 mmol/L Normal 3.5-5.1 [facility] Comment on above: Performed By: #### L 500.4050, L501.9910, L501.1400, L500.4100, L501.9985, L100.0100 #### [facility] [address] [place], [address] Sodium [Moles/Vol] 137 mmol/L Normal 136-145 [facility] Comment on above: Performed By: #### L 500.4050, L501.9910, L501.1400, L500.4100, L501.9985, L100.0100 #### [facility] [address] [place], [address] T PROT 7.5 g/dL Normal 6.4-8.2 [facility] Comment on above: Performed By: #### L 500.4050, L501.9910, L501.1400, L500.4100, L501.9985, L100.0100 #### [facility] [address] [place], [address] Urea nitrogen [Mass/Vol] 18 mg/dL Normal 7-18 [facility] Comment on above: Performed By: #### L 500.4050, L501.9910, L501.1400, L500.4100, L501.9985, L100.0100 #### [facility] [address] [place], [address] Hemoglobin A1con 03-14-2024 HbA1c (Bld) [Mass fraction] 5.9 % High 3.8-5.6 [facility] Comment on above: Order Comment: ALVA UNDERWOOD CNP ADDED AN A1C. RANGLE Result Comment: Norm al < 5.7 % Prediabetic 5.7 - 6.4 % Diabetic >or= 6.5 % Please note range changes. Performed By: #### L 500.4050, L501.9910, L501.1400, L500.4100, L501.9985, L100.0100 #### [facility] [address] [place], [address] Lipid Profileon 03-14-2024 Cholesterol [Mass/Vol] 192 mg/dL Normal 200 [facility] Comment on above: Result Comment: <200 mg/dL Desirable 200-240 mg/dL Borderline >240 mg/dL High Risk Performed By: #### L 500.4050, L501.9910, L501.1400, L500.4100, L501.9985, L100.0100 #### [facility] [address] [place], [address] Cholesterol in HDL [Mass/Vol] 37 mg/dL Low [facility] Comment on above: Result Comment: The drugs N-Acetylcysteine and Metamizole may falsely depress this assay. Reference Range HDL <40 mg/dL Low HDL Cholesterol HDL >or= 60 mg/dL High HDL Cholesterol Performed By: #### L 500.4050, L501.9910, L501.1400, L500.4100, L501.9985, L100.0100 #### [facility] [address] [place], [address] Cholesterol in LDL [Mass/Vol] 101 mg/dL Normal 0-130 [facility] Comment on above: Performed By: #### L 500.4050, L501.9910, L501.1400, L500.4100, L501.9985, L100.0100 #### [facility] [address] [place], [address] Cholesterol in VLDL [Mass/Vol] 54 mg/dL High 5-40 [facility] Comment on above: Performed By: #### L 500.4050, L501.9910, L501.1400, L500.4100, L501.9985, L100.0100 #### [facility] [address] [place], [address] Triglyceride [Mass/Vol] 272 mg/dL High [facility] Comment on above: Result Comment: The drugs N-Acetylcysteine and Metamizole may falsely depress this assay. Serum Triglycerides Reference Interval Normal <150 mg/dL Borderline high 150 - 199 mg/dL High 200 - 499 mg/dL Very High > or = 500 mg/dL Performed By: #### L 500.4050, L501.9910, L501.1400, L500.4100, L501.9985, L100.0100 #### [facility] [address] [place], [place], [address] PSA,Total - Annual Screenon 03-14-2024 PSA,TOT SCREEN 0.99 ng/mL Normal 0.00-4.00 [facility] Comment on above: Result Comment: This test was performed using the TPSA assay method for the [employer] Change chemistry system. Values obtained with different assay methods cannot be used interchangably. When changing PSA assays in the course of monitoring a patient, additional sequential testing should be carried out to confirm baseline values. Performed By: #### L 500.4050, L501.9910, L501.1400, L500.4100, L501.9985, L100.0100 #### [facility] [address] [place], [place], [address] Uric Acidon 03-14-2024 URIC 6.8 mg/dL Normal 3.5-7.2 [facility] Comment on above: Result Comment: The drugs N-Acetylcysteine and Metamizole may falsely depress this assay. Performed By: #### L 500.4050, L501.9910, L501.1400, L500.4100, L501.9985, L100.0100 #### [facility] [address] [place], [place], [address] Absolute lymphocyte countOrd ered By: Nancy Underwood on 11-06-2022 Lymphocytes Auto (Unsp spec) [#/Vol] 1.36 10*3/uL 0.83-4.51 [facility] Basophil percentageOrdered B y: Nancy Underwood on 11-06-2022 Basophils/100 WBC (Bld) 0.4 % 0-1 [facility] Chloride [Moles/Vol] 106 mmol/L 98-107 [facility] Eosinophils/100 WBC (Bld) 1.6 % 0-5 [facility] Glucose [Mass/Vol] 109 mg/dL 74-106 [facility] Comment on above: Fasting Glucose resu lt from 100 to 125 mg/dL suggests IMPAIRED HOMEOSTASIS per A.D.A. criteria. Neutrophils (Bld) [#/Vol] 2.4 10*3/uL 2.0-7.7 [facility] Neutrophils/100 WBC (Bld) 53.4 % 47-70 [facility] Potassium [Moles/Vol] 3.9 mmol/L 3.5-5.1 [facility] Sodium [Moles/Vol] 138 mmol/L 136-145 [facility] WBC (Bld) [#/Vol] 4.5 10*3/uL 4.4-11.0 [facility] Blood erythrocytes count (nu mber/volume)Ordered By: Nancy Undewrood on 11-06-2022 RBC (Bld) [#/Vol] 4.39 10*6/uL 4.6-6.2 [facility] Blood hemoglobin measurement (mass/volume)Ordered By: Nancy Underwood on 11-06-2022 Hemoglobin (Bld) [Mass/Vol] 14.5 g/dL 13.0-16.5 [facility] Blood lymphocytes/100 leukoc ytesOrdered By: Nancy Underwood on 11-06-2022 Lymphocytes/100 WBC (Bld) 30.5 % 19-41 [facility] Blood monocytes/100 leukocyt esOrdered By: Nancy Underwood on 11-06-2022 Monocytes/100 WBC (Bld) 13.7 % 0-10 [facility] Blood platelet mean volumeOr dered By: Nancy Underwood on 11-06-2022 Platelet mean volume (Bld) [Entitic vol] 9.6 fL 6.2-12.0 [facility] Determination of erythrocyte mean corpuscular volume (MCV)Ordered By: Nancy Underwood on 11-06-2022 MCV (RBC) [Entitic vol] 93.4 fL 80-94 [facility] Hematocrit Auto (Bld) [Volum e fraction]Ordered By: Nancy Underwood on 11-06-2022 Hematocrit (Bld) [Volume fraction] 41.0 % 40-54 [facility] - Chemistry and C hemistry - challengeOrdered By: Nancy Underwood on 11-06-2022 CO2 [Moles/Vol] 28.0 mmol/L 21.0-32.0 [facility] Urea nitrogen/Creatinine [Mass ratio] 15.6 mg/mg 10-20 [facility] - Hematology and Cell countsOrdered By: Nancy Underwood on 11-06-2022 Erythrocyte distribution width (RBC) [Entitic vol] 42.8 fL 35.1-43.9 [facility] Erythrocyte distribution width (RBC) [Ratio] 12.4 % 11.6-14.6 [facility] Immature granulocytes/100 WBC (Bld) 0.400 % 0.0-0.9 [facility] Comment on above: IG% - Immature Granu locytes (promyelocytes, myelocytes and metamyelocytes) > 1% indicates that a LEFT SHIFT is Present. MCH (RBC) [Entitic mass] 33.0 pg 27.0-32.0 [facility] Nucleated RBC/100 WBC (Bld) [Ratio] 0 % 0-5 [facility] MCHC Auto (RBC) [Mass/Vol]Or dered By: Nancy Underwood on 11-06-2022 MCHC (RBC) [Mass/Vol] 35.4 g/dL 32-36 [facility] No Panel InformationOrdered By: Nancy Underwood on 11-06-2022 Estimated GFR (MDRD) Amer 101 mL/min >60 [facility] Comment on above: GFR Calc Estimated GFR (MDRD) Non-Af Amer 84 mL/min >60 [facility] Comment on above: Non- GFR Calc Platelets bldOrdered By: Long Underwood on 11-06-2022 Platelets (Bld) [#/Vol] 165 10*3/uL 150-450 [facility] Serum or plasma calcium daniel urement (mass/volume)Ordered By: Nancy Underwodo on 11-06-2022 Calcium [Mass/Vol] 8.9 mg/dL 8.5-10.1 [facility] Serum or plasma creatinine m easurement (mass/volume)Ordered By: Nancy Underwood on 11-06-2022 Creatinine [Mass/Vol] 0.96 mg/dL 0.70-1.30 [facility] Comment on above: The validity of the calculated GFR & GFRAA in patients over 70 years has not been determined. Clinical correlation is essential. Serum or plasma urea nitroge n measurement (mass/volume)Ordered By: Nancy Underwood on 11-06-2022 Urea nitrogen [Mass/Vol] 15 mg/dL 7-18 [facility] Serum or plasma uric acid me asurement (mass/volume)Ordered By: Nancy Underwood on 11-06-2022 Urate [Mass/Vol] 5.8 mg/dL 3.5-7.2 [facility] Comment on above: The drugs N-Acetylcy steine and Metamizole may falsely depress this assay. Thin prep Papanicolaou smear with manual screeningOrdered By: Nancy Underwood on 11-06-2022 Thin prep Papanicolaou smear with manual screening 4 5-15 [facility] Basophil percentageOrdered B y: Nancy Underwood on 10-06-2022 Bilirubin [Mass/Vol] 0.30 mg/dL 0.20-1.00 [facility] Comment on above: For patients on eltr ombopag therapy, use of [employer] TBIL is not recommended. Cholesterol [Mass/Vol] 198 mg/dL <200 [facility] Comment on above: <200 mg/dL Desirable 200-240 mg/dL Borderline >240 mg/dL High Risk Protein [Mass/Vol] 7.2 g/dL 6.4-8.2 [facility] Triglyceride [Mass/Vol] 229 mg/dL <199 [facility] Comment on above: The drugs N-Acetylcy steine and Metamizole may falsely depress this assay.Serum Triglycerides Reference Interval Normal <150 mg/dL Borderline high 150 - 199 mg/dL High 200 - 499 mg/dL Very High > or = 500 mg/dL Direct bilirubinOrdered By: Nancy Underwood on 10-06-2022 Bilirubin.direct [Mass/Vol] 0.14 mg/dL 0.00-0.30 [facility] Laboratory - Chemistry and C hemistry - challengeOrdered By: Nancy Underwood on 10-06-2022 ALP [Catalytic activity/Vol] 87 U/L 45-117 [facility] ALT [Catalytic activity/Vol] 34 U/L 16-61 [facility] Globulin (S) [Mass/Vol] 3.5 g/dL 2.2-4.2 [facility] Serum or plasma albumin daniel urement (mass/volume)Ordered By: Nancy Underwood on 10-06-2022 Albumin [Mass/Vol] 3.7 g/dL 3.2-5.0 [facility] Serum or plasma cholesterol in HDL measurement (mass/volume)Ordered By: Nancy Underwood on 10-06-2022 Cholesterol in HDL [Mass/Vol] 36 mg/dL >40 [facility] Comment on above: The drugs N-Acetylcy steine and Metamizole may falsely depress this assay. Reference Range HDL <40 mg/dL Low HDL Cholesterol HDL >or= 60 mg/dL High HDL Cholesterol Serum or plasma cholesterol in VLDL measurement (mass/volume)Ordered By: Nancy Underwood on 10-06-2022 Cholesterol in VLDL [Mass/Vol] 46 mg/dL 5-40 [facility] Serum or plasma low density lipoprotein (LDL) cholesterol measurement (mass/volume)Ordered By: Nancy Underwood on 10-06-2022 Cholesterol in LDL [Mass/Vol] 116 mg/dL 0-130 [facility] Serum or plasma uric acid me asurement (mass/volume)Ordered By: Nancy Underwood on 10-06-2022 Urate [Mass/Vol] 5.4 mg/dL 3.5-7.2 [facility] Comment on above: The drugs N-Acetylcy steine and Metamizole may falsely depress this assay. Thin prep Papanicolaou smear with manual screeningOrdered By: Nancy Underwood on 10-06-2022 Thin prep Papanicolaou smear with manual screening 19 U/L 15-37 [facility] CNOVon 06-21-2022 CNOV Office Visit ([facility] ) DARRYL ANGULO ([id number]) 1960 Date Time Provider Department 06/21/22 6:45 PM CARMELITA JONES [facility] During your visit today, we recorded the following information about you: Temperature Pulse Respiration Blood pressure 97.4 degrees 91/minute 21/minute 182/100 Weight 107.1 kg SHIRLEY Roland 06/21/2022 7:21 PM Signed This note was created using [employer]. Subjective Darryl Angulo is a 62 year [...] is aware of. He has been taking genp-[id number] DayQuil and NyQuil. Blood pressure is elevated [...] unspecified type [I10] Order(s):XR CHEST 2V FRONTAL/LAT [[id number]] Order #: [id number] FUTURE doxycycline monohydrate 100 mg tabletTake 1 tablet by mouth twice daily for 5 days.Disp: 10 tabletRfl: 0 benzonatate (TESSALON PERLES) 100 mg capsuleTake 1 capsule by mouth three times daily as needed for cough.Disp: 14 capsuleRfl: 0 Prescriptions as of 06/21/2022 - amLODIPine (NORVASC) 5 mg tablet Take 5 mg by mouth once daily. - ramipril (SERAFIN (more content not included)... Normal [facility] XR CHEST 2V FRONTAL/LATon XR CHEST 2V [...] tissues: Unremarkable. IMPRESSION: No acute radiographic abnormality. Production Dispatcher: CONNER Transcribe Date/Time: Jun 21 2022 7:16P Dictated by : DANELLE GUZMAN MD This examination was interpreted and the report reviewed and electronically signed by: DANELLE GUZMAN MD on Jun 21 2022 7:16PM EST [id number] Normal [facility] XR Chest PA and Lateralon IMPRESSION: No acute radiographic abnormality. Production Dispatcher: PSCB Transcribe Date/Time: Jun 21 2022 7:16P [...] soft tissues: Unremarkable. DIVISION OF RADIOLOGY Provider, [facility] - 06/21/2022 * * *Final Report* * [...] Unremarkable. IMPRESSION IMPRESSION: No acute radiographic abnormality. Production Dispatcher: CONNER Transcribe Date/Time: Jun 21 2022 7:16P Dictated by : DANELLE GUZMAN MD This examination was interpreted and the report reviewed and electronically signed by: DANELLE GUZMAN MD on Jun 21 2022 7:16PM EST [facility] Radiology Study observation (narrative) Kayce scales [facility] XR Chest PA and LateralOrder ed By: Ccf Provider on 06-21-2022 [facility] Basophil percentageOrdered B y: Dr. Wilcox on 05-17-2022 Chloride [Moles/Vol] 104 mmol/L 98-107 [facility] Glucose [Mass/Vol] 141 mg/dL 74-106 [facility] Comment on above: Fasting Glucose resu lt greater than or equal to 126 mg/dL suggests DIABETES MELLITUS per A.D.A. criteria. Potassium [Moles/Vol] 4.2 mmol/L 3.5-5.1 [facility] Sodium [Moles/Vol] 137 mmol/L 136-145 [facility] WBC (Bld) [#/Vol] 4.1 10*3/uL 4.4-11.0 [facility] Blood erythrocytes count (nu mber/volume)Ordered By: Dr. Wilcox on 05-17-2022 RBC (Bld) [#/Vol] 4.53 10*6/uL 4.6-6.2 [facility] Blood hemoglobin measurement (mass/volume)Ordered By: Dr. Wilcox on 05-17-2022 Hemoglobin (Bld) [Mass/Vol] 14.8 g/dL 13.0-16.5 [facility] Blood platelet mean volumeOr dered By: Dr. Wilcox on 05-17-2022 Platelet mean volume (Bld) [Entitic vol] 9.7 fL 6.2-12.0 [facility] Determination of erythrocyte mean corpuscular volume (MCV)Ordered By: Dr. Wilcox on 05-17-2022 MCV (RBC) [Entitic vol] 91.4 fL 80-94 [facility] Hematocrit Auto (Bld) [Volum e fraction]Ordered By: Dr. Wilcox on 05-17-2022 Hematocrit (Bld) [Volume fraction] 41.4 % 40-54 [facility] Laboratory - Chemistry and C hemistry - challengeOrdered By: Dr. Wilcox on 05-17-2022 CO2 [Moles/Vol] 28.0 mmol/L 21.0-32.0 [facility] Urea nitrogen/Creatinine [Mass ratio] 20.6 mg/mg 10-20 [facility] Laboratory - Hematology and Cell countsOrdered By: Dr. Wilcox on 05-17-2022 Erythrocyte distribution width (RBC) [Entitic vol] 39.8 fL 35.1-43.9 [facility] Erythrocyte distribution width (RBC) [Ratio] 11.9 % 11.6-14.6 [facility] MCH (RBC) [Entitic mass] 32.7 pg 27.0-32.0 [facility] MCHC Auto (RBC) [Mass/Vol]Or dered By: Dr. Wilcox on 05-17-2022 MCHC (RBC) [Mass/Vol] 35.7 g/dL 32-36 [facility] No Panel InformationOrdered By: Dr. Wilcox on 05-17-2022 Estimated GFR (MDRD) Amer 101 mL/min >60 [facility] Comment on above: GFR Calc Estimated GFR (MDRD) Non-Af Amer 83 mL/min >60 [facility] Comment on above: Non- GFR Calc Platelets bldOrdered By: Dr. Wilcox on 05-17-2022 Platelets (Bld) [#/Vol] 147 10*3/uL 150-450 [facility] Serum or plasma calcium daniel urement (mass/volume)Ordered By: Dr. Wilcox on 05-17-2022 Calcium [Mass/Vol] 9.6 mg/dL 8.5-10.1 [facility] Serum or plasma creatinine m easurement (mass/volume)Ordered By: Dr. Wilcox on 05-17-2022 Creatinine [Mass/Vol] 0.97 mg/dL 0.70-1.30 [facility] Comment on above: The validity of the calculated GFR & GFRAA in patients over 70 years has not been determined. Clinical correlation is essential. Serum or plasma urea nitroge n measurement (mass/volume)Ordered By: Dr. Wilcox on 05-17-2022 Urea nitrogen [Mass/Vol] 20 mg/dL 7-18 [facility] Thin prep Papanicolaou smear with manual screeningOrdered By: Dr. Wilcox on 05-17-2022 Thin prep Papanicolaou smear with manual screening 5 5-15 [facility] Vital Signs Date Time Vital Sign Value Performing Clinician Facility 12-17-2024 14:00-0400 Body temperature 98.4 [degF] Nancy Underwood [employer]TELLIGENT SYSTEMS ENGINEER[employer]C Work Phone: [facility] 12-17-2024 14:00-0400 Diastolic blood pressure 92 mm[Hg] Nancy Underwood INTELLIGENT SYSTEMS ENGINEER-C Work Phone: [facility] 12-17-2024 14:00-0400 Heart rate 69 /min Nancy Underwood [employer]TELLIGENT SYSTEMS ENGINEER-C Work Phone: [facility] 12-17-2024 14:00-0400 Respiratory rate 16 /min Nancy Underwood INTELLIGENT SYSTEMS ENGINEER-C Work Phone: [facility] 12-17-2024 14:00-0400 SaO2% (BldA) [Mass fraction] 97 % Nancy Underwood INTELLIGENT SYSTEMS ENGINEER-C Work Phone: [facility] 12-17-2024 14:00-0400 Systolic blood pressure 134 mm[Hg] Nancy Underwood INTELLIGENT SYSTEMS ENGINEER-C Work Phone: [facility] 12-17-2024 12:36-0400 Body height 182.88 cm Nancy Underwood INTELLIGENT SYSTEMS ENGINEER-C Work Phone: [facility] 12-17-2024 12:36-0400 Body mass index (BMI) [Ratio] 30.4 kg/m2 Nancy Underwood INTELLIGENT SYSTEMS ENGINEER-C Work Phone: [facility] 12-17-2024 12:36-0400 Body weight 102 kg Nancy Underwood INTELLIGENT SYSTEMS ENGINEER-C Work Phone: [facility] 06-21-2022 18:41-0500 Body temperature 97.39 [degF] Krislyn Aberegg PA Work Phone: [facility] 06-21-2022 18:41-0500 Body weight 107.14 kg Krislyn Aberegg PA Work Phone: [facility] 06-21-2022 18:41-0500 Diastolic blood pressure 100 mm[Hg] Krislyn Aberegg PA Work Phone: [facility] 06-21-2022 18:41-0500 Heart rate 91 /min Krislyn Aberegg PA Work Phone: [facility] 06-21-2022 18:41-0500 Respiratory rate 21 /min Krislyn Aberegg PA Work Phone: [facility] 06-21-2022 18:41-0500 SaO2% (BldA) [Mass fraction] 97 % Krislyn Aberegg PA Work Phone: [facility] 06-21-2022 18:41-0500 Systolic blood pressure 182 mm[Hg] Carmelita WATSON Work Phone: [facility] Encounters Encounter Date Encounter Type Care Provider Facility Start: 12-17-2024 ambulatory [facility] Facility:[facility] Start: 12-17-2024 Non-patient / Non-visit Bret Lai nd DO -[facility] Start: 12-17-2024 End: 12-17-2024 Admission to same day surgery center Bert Lilly DO -Endoscopy Work Phone: Start: 12-17-2024 End: 12-17-2024 ambulatory Nancy Underwood INTELLIGENT SYSTEMS ENGINEER-C Work Phone: -Endoscopy Start: 10-19-2024 End: 10-19-2024 ambulatory Nancy Underwood INTELLIGENT SYSTEMS ENGINEER-C Work Phone: [facility] Work Phone: Start: 10-19-2024 End: 10-19-2024 Patient encounter procedure Nancy Underwood INTELLIGENT SYSTEMS ENGINEER-C -Radiology [facility] Work Phone: Start: 10-19-2024 End: 10-19-2024 ambulatory [facility] Facility:[facility] Start: 03-14-2024 End: 03-14-2024 ambulatory [facility] Facility:[facility] Start: 11-06-2022 End: 11-06-2022 ambulatory [facility] Work Phone: Start: 11-06-2022 End: 11-06-2022 Patient encounter procedure [facility]Laboratory Work Phone: Start: 10-06-2022 End: 10-06-2022 ambulatory [facility] Work Phone: Start: 10-06-2022 End: 10-06-2022 Patient encounter procedure [facility]Labor[facility] Start: 06-21-2022 End: 06-21-2022 ambulatory Facility:[facility] Start: 06-21-2022 End: 06-21-2022 Subsequent hospital visit by physician X[facility] Work Phone: Radiology Comment on above: Acute cough [R05.1] Start: 06-21-2022 End: 06-21-2022 Patient encounter procedure Carmelita WATSON Work Phone: [facility] Comment on above: Sinobronchitis (Prim dalia Dx); Acute cough; Hypertension, unspecified type Start: 05-17-2022 End: 05-17-2022 ambulatory [facility] Work Phone: Start: 05-17-2022 End: 05-17-2022 Patient encounter procedure [facility]-Pulmonary Services/Neurology Procedures Date Procedure Procedure Detail Performing Clinician Start: 12-17-2024 Colonoscopy Nancy corona INTELLIGENT SYSTEMS ENGINEER-C Work Phone: Start: 10-19-2024 Plain x-ray of pelvi s and lower extremity Nancy Underwood INTELLIGENT SYSTEMS ENGINEER-C Work Phone: Start: 10-19-2024 X-ray of lumbosacral spine Nancy Underwood INTELLIGENT SYSTEMS ENGINEER-C Work Phone: Start: 06-21-2022 Radiologic exam ches t 2 views Carmelita WATSON Work Phone: Plan of Treatment Date Care Activity Detail Author Start: 2034 RSV Vaccine (1 - 1-dose 75+ series) RSV Vaccine (1 - 1-dose 75+ series) [facility] Start: 05-03-2030 Urine microalbumin profile DTaP,Tdap,Td Vaccine (3 - Td or Tdap) [facility] Start: 12-17-2024 Patient discharge [facility] Start: 01-06-2024 Covid-19 Vaccine ( season) Covid-19 Vaccine ( season) [facility] Start: 01-06-2024 Influenza vaccination Influenza Vaccine (#1) [facility] Start: 05-07-2022 DEPRESSION ASSESSMENT DEPRESSION ASSESSMENT [facility] Start: 04-15-2022 COVID-19 VACCINE (2 - Pfizer series) COVID-19 VACCINE (2 - Pfizer series) [facility] Start: 06-28-2020 Shingrix Vaccine (2 of 2) Shingrix Vaccine (2 of 2) [facility] Start: 2014 PROSTATE CANCER SCREENING DISCUSSION PROSTATE CANCER SCREENING DISCUSSION [facility] Start: 2014 Prostate specific antigen measurement Prostate Cancer Screening Discussion [facility] Start: 2009 SHINGRIX VACCINE (1 of 2) SHINGRIX VACCINE (1 of 2) [facility] Start: 2004 COLOGUARD (FIT-DNA) COLOGUARD (FIT-DNA) [facility] Start: 2004 Colonoscopy COLONOSCOPY [facility] Start: 2004 COLORECTAL CANCER SCREENING COLORECTAL CANCER SCREENING [facility] Start: [address] COLONOGRAPHY [facility] Start: 2004 DIABETES SCREEN DIABETES SCREEN [facility] Start: 2004 Diabetes Screening Diabetes Screening [facility] Start: 2004 FECAL OCCULT BLOOD FECAL OCCULT BLOOD [facility] Start: 2004 Screening for malignant neoplasm of colon [facility] Start: 2004 SIGMOIDOSCOPY SIGMOIDOSCOPY [facility] Start: 1994 Lipid panel Lipid Screening [facility] Start: 1994 LIPID SCREEN LIPID SCREEN [facility] Start: 1978 Urine microalbumin profile DTAP,TDAP,TD (1 - Tdap) [facility] Start: 1977 Anxiety Screening Anxiety Screening [facility] Start: 1977 Depression Screening Depression Screening [facility] Start: 1977 HEPATITIS C SCREENING HEPATITIS C SCREENING [facility] Start: 1977 Hepatitis C screening Hepatitis C Screening [facility] Start: 1977 HIV SCREENING HIV SCREENING [facility] Start: 1977 HIV screening HIV Screening [facility] Immunizations Immunization Date Immunization Notes Care Provider Fa krishan 03-25-2022 influenza virus vacc ine, unspecified formulation Xr Kalin Work Phone: [facility] Payers Date Payer Category Payer Self-pay [id number] 2021 Unknown [id number] 2021 Unknown [employer]IZA DAWK[employer] FEP PPO [id number] 2021-Present [phone] [address] [place] [address] PPO [id number] Unknown [facility] [id number] Unknown [facility] PACKAGE PLAN [id number] Unknown [id number] Unknown [id number] Unknown [id number] Social History Date Type Detail Facility Tobacco smoking status NHIS Unknown if ever smoked [facility] Work Phone: Start: 1960 Sex Assigned At Male [facility] Start: 06-21-2022 End: 12-15-2024 Tobacco smoking status NHIS Never smoked tobacco [facility] Start: 06-21-2022 Tobacco use and exposure Smokeless tobacco non-user [facility] Start: 1960 Sex Assigned At Not on file [facility] Start: 06-21-2022 History of Social function [facility] Start: 06-21-2022 Tobacco use panel [facility] Tobacco smoking status NHIS Unknown if ever smoked [facility] Work Phone: NEGATED: Highlighted rowStart: NINF History of tobacco use Passive smoker [facility] Goals Date Patient Goal Desired Activity /State Mental Status Date Assessment Result Facility 12-17-2024 Cognitive function Level Of Consciousness Drowsy [facility] Work Phone: 12-17-2024 Cognitive function Voice/Name [facility] Work Phone: Clinical Notes 06-21-2022 to 12-17-2024 Note Date & Type Note Facility 12-17-2024 Evaluation note Diagnosis Onset Date Resolution Encounter for screening colonoscopy acute December 17 12:21pm [facility] Work Phone: 1(513) 596-625608-13-2025 Consult note [facility] Medical Records Department [address] [place] [address] Anesthesia Postop Eval I 12/17/24 1353 MR#: [id number] Acct: [id number] Name: DARRYL ANGULO Rep #:[id number] : 1960 64 From: Davis Odom PCP: MARLEN ChavezC Status:REG SDC Y Race: C Location: [place] [address] Anesthesia: Postop Eval I Current Vital Signs Temperature: 97 F Pulse Rate: 67 Blood Pressure: 132/91 Respiratory Rate: 16 Pulse Ox: 93 Oxygen Delivery Method: Room Air Assessment Airway patent: Yes Spontaneous unlabored respirations: Yes Mental status: Asleep nausea: No Vomiting: No Anesthesia Complication: No Fluid Hydration Crystalloid volume administer (ml): 600 Total IV fluid infused: 600 Progress Note Anesthesia document: Postop Eval 1 completed: Yes 12/17/24 1354 > Date _ Davis Ramirez Signature: Date CC: ~ Signed [facility]08-13-2025 Procedure note [facility] Medical Records Department [address] [place] [address] Colonoscopy Report MR#: [id number] Acct: [id number] Name: DARRYL ANGULO Rep #:[id number] : 1960 64 From: Bret Lilly DO PCP: ARAVIND Chavez Status:REG SDC Patient Name: Darryl Angulo Procedure Date: 12/17/2024 1:13 PM Date of : 1960 Age: 64 Procedure: Colonoscopy Indications: Screening for colorectal malignant neoplasm Providers: Bret Lilly DO Referring MD: Aravind Chavez Medicines: Monitored Anesthesia Care Patient Profile: This is a 64 year old male. Refer to note in patient chart for documentation of history and physical. Last Colonoscopy: several years ago. Complications: No immediate complications. Procedure: Pre-Anesthesia Assessment: - Prior to the procedure, a History and Physical was performed, and patient medications and allergies were reviewed. The patient is competent. The risks and benefits of the procedure and the sedation options and risks were discussed with the patient. All questions were answered and informed consent was obtained. Patient identification and proposed procedure were verified by the physician in the pre-procedure area. Mental Status Examination: alert and oriented. Airway Examination: normal oropharyngeal airway and neck mobility. Respiratory Examination: clear to auscultation. CV Examination: normal. Prophylactic Antibiotics: The patient does not require prophylactic antibiotics. Prior Anticoagulants: The patient has taken no anticoagulant or antiplatelet agents except for NSAID medication. ASA Grade Assessment: II - A patient with mild systemic disease. After reviewing the risks and benefits, the patient was deemed in satisfactory condition to undergo the procedure. The anesthesia plan was to use monitored anesthesia care (MAC). Immediately prior to administration of medications, the patient was re-assessed for adequacy to receive sedatives. The heart rate, respiratory rate, oxygen saturations, blood pressure, adequacy of pulmonary ventilation, and response to care were monitored throughout the procedure. The physical status of the patient was re-assessed after the procedure. After I obtained informed consent, the scope was passed under direct vision. Throughout the procedure, the patient's blood pressure, pulse, and oxygen saturations were monitored continuously. The pediatric colonoscope was introduced through the anus and advanced to the cecum, identified by appendiceal orifice and ileocecal valve. The colonoscopy was performed without difficulty. The patient tolerated the procedure well. The quality of the bowel preparation was adequate. The ileocecal valve, appendiceal orifice, and rectum were photographed. Scope In: 1:28:23 PM Scope Withdrawal Time 0 hours 8 minutes 39 seconds Scope Out: 1:40:30 PM Total Procedure Duration Time 0 hours 12 minutes 7 seconds Findings: The perianal and digital rectal examinations were normal. Multiple small-mouthed diverticula were found in the recto-sigmoid colon, sigmoid colon and descending colon. Three sessile polyps were found in the sigmoid colon and cecum. The polyps were 4 mm in size. These polyps were removed with a jumbo cold forceps. Resection and retrieval were complete. Verification of patient identification for the specimen was done. Estimated blood loss was minimal. The exam was otherwise without abnormality on direct and retroflexion views. Impression: - Diverticulosis in the recto-sigmoid colon, in the sigmoid colon and in the descending colon. There was also recent diverticulitis seen. - Three 4 mm polyps in the sigmoid colon and in the cecum, removed with a jumbo cold forceps. Resected and retrieved. - The examination was otherwise normal on direct and retroflexion views. Recommendation: - Discharge patient to home. - Resume previous diet. - Continue present medications. - Await pathology results. - Repeat colonoscopy in 5 years for surveillance. - High fiber diet Procedure Code(s): --- Professional --- 23173, Colonoscopy, flexible; with biopsy, single or multiple CPT copyright 2021 [employer]. All rights reserved. The codes documented in this report are preliminary and upon park recreation manager review may be revised to meet current compliance requirements. Bret Lilly DO 12/17/2024 1:46:14 PM This report has been signed electronically. Number of Addenda: 0 Note Initiated On: 12/17/2024 1:13 PM 12/17/24 1346 Date _ Bret Lilly DO Cosigner Signature: Date (if indicated) CC: ARAVIND Underwood; Bret Lilly DO ~ Date Dictated: 12/17/24 1313 Date Transcribed: Production Dispatcher: RF Signed [facility]08-13-2025 Procedure note [facility] Medical Records Department [address] [place] [id number] Provation Physician Letter MR#: [id number] Acct: [id number] Name: DARRYL ANGULO Rep #:[id number] : 1960 64 From: Bret Lilly DO PCP: ARAVIND Chavez Status:REG [facility] [place] 12/17/2024 Aravind Chavez Re : Colonoscopy procedure for Darryl Angulo Dear Zack This procedure was performed on Tuesday, December 17, 2024. My impressions and recommendations are as follows: Impressions : - Diverticulosis in the recto-sigmoid colon, in the sigmoid colon and in the descending colon. There was also recent diverticulitis seen. - Three 4 mm polyps in the sigmoid colon and in the cecum, removed with a jumbo cold forceps. Resected and retrieved. - The examination was otherwise normal on direct and retroflexion views. Recommendations : - Discharge patient to home. - Resume previous diet. - Continue present medications. - Await pathology results. - Repeat colonoscopy in 5 years for surveillance. - High fiber diet My findings are described in the full procedure note, which is enclosed. If I can be of further assistance, please feel free to contact me at . Sincerely, Bret Lilly DO 12/17/2024 1:46:14 PM This report has been signed electronically. 12/17/24 1346 Date _ Bret Lilly DO Cosigner Signature: Date (if indicated) CC: INTELLIGENT SYSTEMS ENGINEER-C Nancy Underwood; Bret Lilly DO ~ Date Dictated: 12/17/24 1313 Date Transcribed: Production Dispatcher: ROMIE Signed [facility]08-13-2025 Consult note [facility] Medical Records Department [address] [place] [address] Pre-Anesthesia Evaluation 12/17/24 1258 MR#: [id number] Acct: [id number] Name: DARRYL ANGULO Rep #:[id number] : 1960 64 From: Osmel Scales PCP: ARAVIND Chavez Status:REG SDC Y Race: C Location: [place] [address] ASA Classification* ASA Classification ASA Classification: 2 Assessment & Plan Anesthesia* Anesthesia Assessment Anesthesia Assessment: Discussed sedation and/or anesthesia options, risks, benefits, and alternatives with patient/parents/legal guardian/POA. Questions invited. The patient/parents/legal guardian/POA seems to understand and agrees to proceedwith anesthesia plan. Reviewed the physical assessment, medical history, allergy history and patient home medications list prior to surgery/procedure/anesthetic and documented any changes. Performed airway and anesthesia risk assessments. Anesthesia Type Anesthesia Type: MAC History Source History Obtained from:: Patient and Chart Anesthesia Focused Assessment* Temperature: 97.3 F Pulse Rate: 73 Blood Pressure: 165/99 Respiratory Rate: 16 Pulse Ox: 96 Oxygen Delivery Method: Room Air Airway Assessment Mouth opens: >3 cm Mallampati Score: II Teeth Condition: Intact Neck Range of motion (ROM): Full ROM Labs Anesthesia Preop lab: CBC WBC 4.4 K/mm3 (4.4-11.0) 03/14/24 08:18 03/14/24 RBC 4.66 M/mm3 (4.6-6.2) 03/14/24 08:18 03/14/24 Hgb 15.2 g/dL (13.0-16.5) 03/14/24 08:18 03/14/24 Hct 42.3 % (40-54) 03/14/24 08:18 03/14/24 Plt Count 157 K/mm3 (150-450) 03/14/24 08:18 03/14/24 CHEMISTRY Potassium 4.1 mmol/L (3.5-5.1) 03/14/24 08:18 03/14/24 Sodium 137 mmol/L (136-145) 03/14/24 08:18 03/14/24 BUN 18 mg/dL (7-18) 03/14/24 08:18 03/14/24 Creatinine 1.00 mg/dL (0.70-1.30) 03/14/24 08:18 03/14/24 Glucose 126 mg/dL (74-106) H 03/14/24 08:18 03/14/24 COAG Pre-Assessment Diagnosis/Proposed Procedure Planned Operative Procedure(s): COLONOSCOPY-OA Anesthesia History 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 When Was Last Pacemaker Check QUESTION #4 FULL TEXT: You/Your Family Experience fever (hyperthermia) with Anesthesia Last Oral Intake Last Oral intake: Last Oral Intake NPO since 10:30 12/17/24 12:36 Meds taken in AM with sips of Yes 12/17/24 12:36 water? Meds patient instructed to take am of surgery PONV PONV - ecosystem ecology professor: PONV - ecosystem ecology professor Female No 12/15/24 11:35 HX of Motion Sickness No 12/15/24 11:35 HX of N/V After Surgery No 12/15/24 11:35 Non-Smoker Yes 12/15/24 11:35 Duration of Surgery greater No 12/15/24 11:35 than 60 minutes Number of Risk Factors 1 12/15/24 11:35 PONV Score Low Risk 12/15/24 11:35 Height & Weight Height & Weight: Anesthesia: Height & Weight Height 6 ft 12/17/24 12:36 Weight: 102 kg 12/17/24 12:36 Body Mass Index (BMI) 30.4 12/17/24 12:36 Respiratory Assessment Respiratory Assessment - ecosystem ecology professor: Respiratory Tract Infection Hx - ecosystem ecology professor Hx Respiratory Tract Infection No 12/15/24 11:35 STOP Sleep Apnea STOP Sleep Apnea - ecosystem ecology professor: STOP Sleep Apnea - ecosystem ecology professor Hx Hypertension Yes: FLUCTUATES 12/15/24 11:35 Hx Sleep Apnea No 12/15/24 11:35 CPAP BIPAP Do you snore loudly (louder No 12/15/24 11:35 than talking or can be heard Do you often feel tired/ No 12/15/24 11:35 fatigued/ sleepy during daytime? Has anyone observed you stop No 12/15/24 11:35 breathing during sleep? STOP Results Negative 12/15/24 11:35 QUESTION #5 FULL TEXT : Do you snore loudly (louder than talking or can be heard through closeddoors)? 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 Specify any problems Hx of Preganancy in last 3 N/A 12/15/24 11:35 Months Nurse Filling Out Transfusion VCHRISTIN 12/15/24 11:35 & Questions: Date: 12/15/24 12/15/24 11:35 Time: 11:36 12/15/24 11:35 Patient unable to answer at this time (ie. 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 Hx Now Gestational Age (in weeks): EDC: Hx Hx Para Hx Section SAB Active Medications Active Medications: Current Medications Generic Name Dose Route Start Last Admin Trade Name Freq PRN Reason Stop Dose Admin Lactated Ringer's 1,000 mls @ 15 mls/hr 12/17/24 12:30 12/17/24 12:39 IV 15 mls/hr .Q48H LUIZ Administration PFSH Medical History Wears glasses History of steroid therapy Gout Back pain Non-smoker History of pain when walking History of echocardiogram Hypertension Home Medications ?Medication ?Instructions ?Recorded ?Last Taken ?Type allopurinol 100 mg tablet 100 mg PO DAILY 12/15/24 Unk nown History amlodipine 5 mg tablet 5 mg PO DAILY 12/15/2412/17 06:30 History hydrochlorothiazide 25 mg tablet 25 mg PO DAILY Unknown History ramipril 10 mg capsule 10 mg PO BID 12/15/24 Unknow n History Allergy/AdvReac Type Severity Reaction Status Date / Time No Known Allergies Allergy Verified 12/17/24 12:35 Surgical History History of carpal tunnel release of both wrists History of back surgery Social History Smoking Status: Never smoker Review of Systems (Anesthesia) ROS Narrative System reviewed and no additional complaints, except as documented. 12/17/24 1303 MD> Date _ Osmel James MD Cosigner Signature: Date CC: ~ Signed [facility]08-13-2025 History and physical note [facility] Medical Records Department [address] [place] [address] History & Physical Exam 12/17/24 1229 MR#: [id number] Acct: [id number] Name: DARRYL ANGULO Rep #:[id number] : 1960 64 From: Bret Friend DO PCP: ARAVIND Chavez Status:[facility] Location: [place] [address] HPI - General General Date of Admission: 12/17/24 Date of Service: 12/17/24 Chief Complaint: Screening colonoscopy HPI Narrative DARRYL ANGULO, is a 64 M who presents Today for screening colonoscopy. He is not having any problems with his bowels. He has a past medical history of hypertension and gout. Both of those diagnoses arecontrolled with medical therapy. [facility] Medical History Wears glasses History of steroid therapy Gout Back pain Non-smoker History of pain when walking History of echocardiogram Hypertension Home Medications ?Medication ?Instructions ?Recorded ?Last Taken ?Type allopurinol 100 mg tablet 100 mg PO DAILY 12/15/24 Unk nown History amlodipine 5 mg tablet 5 mg PO DAILY 12/15/24 Unkno wn History hydrochlorothiazide 25 mg tablet 25 mg PO DAILY Unknown History ramipril 10 mg capsule 10 mg PO BID 12/15/24 Unknow n History Allergy/AdvReac Type Severity Reaction Status Date / Time No Known Allergies Allergy Verified 12/15/24 11:27 Surgical History History of carpal tunnel release of both wrists History of back surgery Social History Smoking Status: Never smoker ROS Constitutional Constitutional: Denies fatigue, fever(s), poor appetite, weight gain or weight loss Gastrointestinal Gastrointestinal: Denies belching, bloating, change in bowel habits, change in stool character, chewing difficulty, coffee ground emesis, constipation, cramping, diarrhea, dyspepsia, dysphagia, earlysatiety, excessive flatus, fecalincontinence, heartburn, hematemesis, hematochezia, hemorrhoids, loose stools, melena, nausea, odynophagia, rectal bleeding, tenesmus, vomiting or weight changes Physical Exam Const alert, oriented x3, no apparent distress and healthy appearing General Appearance: cooperative GI normal to inspection, nondistended, normoactive bowel sounds, soft to palpation,non-tender and non-distended Percussion: normal to percussion Rectal Exam: deferred Assessment & Plan Assessment/Plan (1) Encounter for screening colonoscopy: PLAN: He was explained alternatives, risk and benefits including not withstanding bleeding, infection, sepsis, perforation, need for emergent urgent . He will have an ASA of 3. 12/17/24 1231 Cosigner Signature (if applicable): CC: ARAVIND Underwood; Bret Lilly DO~ Signed [facility]06-16-2025 Radiology Diagnostic study note [facility] Imaging Services [address] [place] [address] L/S Spine Min 4 Views MR#: [id number] Acct: [id number] Name: DARRYL ANGULO Rep #: [id number] : 1960 M 64 From: Madan Wong MD PCP: ARAVIND Chavez Status: REG CLI Study:L/S Spine Min 4 Views Date of Exam: 10/19/24 Exam# [id number] Ordering Dr: Ra lucio Underwood PROCEDURE: L/S SPINE MIN 4 VIEWS 10/19/2024 REASON FOR EXAM: ASSESS HARDWARE, ARTHRITIS TECHNIQUE: L/S SPINE MIN 4 VIEWS COMPARISON: None. FINDINGS: Mild levoscoliosis apex at L3. Prior decompression and fusion with unremarkable transpedicular screws at L4-L5. Grade 1 anterolisthesis of L2 on L3 measuring 4.7 mm. There are diffuse spondylotic changes. Findings are demonstrated to by diffuse disc space narrowing, osteophyte formation and degenerative endplate sclerosis. There is diffuse facet joint arthropathy with secondary bilateral neural foramina narrowing. No fracture or dislocation is seen. No aggressive lytic or blastic bony lesion is noted. RAD/L/S Spine Min 4 Views IMPRESSION: No evidence for acute abnormality. Unremarkable spinal metallic hardware. Diffuse spondylosis. Reading Location[facility] CC: INTELLIGENT SYSTEMS ENGINEER-C Nancy Underwood ~ Production Dispatcher: Signed [facility]06-16-2025 Radiology Diagnostic study note [facility] Imaging Services [address] [place] [address] HIP, UNI W/ Pelvis 2-3 Views MR#: [id number] Acct: [id number] Name: DARRYL ANGULO Rep #: [id number] : 1960 M 64 From: Madan Wong MD PCP: ARAVIND Chavez Status: REG CLI Study:HIP, UNI W/ Pelvis 2-3 Views Date of Ex am: 10/19/24 Exam# [id number] Ordering Dr: Ra lucio Underwood PROCEDURE: HIP, UNI W/ PELVIS 2-3 VIEWS 10/19/2024 REASON FOR EXAM: PAIN TECHNIQUE: HIP, UNI W/ PELVIS 2-3 VIEWS COMPARISON: None FINDINGS: Alignment is within normal limits. Mild hip joint space narrowing and subtle acetabulum sclerosis. No focal lesion noted. Soft tissues appear normal. RAD/HIP, UNI W/ Pelvis 2-3 Views IMPRESSION: No acute osseus abnormality seen. Mild hip arthritic changes. Reading Location: [facility] [address] CC: ARAVIND Underwood ~ Production Dispatcher: Signed [facility]02-15-2023 NoteHNO ID: [id number] Author: RT Deanna(R) Service: ? Author Type: Farm Mortgage Agent Type: Progress Notes Filed: 06/21/2022 7:10 PM [...] BY: RT Deanna(R) June 21, 2022 7:01 [facility]02-15-2023 NoteHNO ID: [id number] Author: SHIRLEY Roland Service: ? Author Type: Physician Geriatric Personal Care Aide Type: Progress Notes Filed: 06/21/2022 7:21 PM Note Text: This note was created using Advanced LEDsriter. Subjective Darryl Angulo is a 62 year [...] is aware of. He has been taking owkk-rpj-sgqafie DayQuil and NyQuil. Blood pressure is elevated [...] discussed in detail warranting prompt ER evaluation. Carmelita Jones, [facility]02-15-2023 History of Present illness Narrative* SHIRLEY Roland - 06/21/2022 6:56 PM EST This note was created using Advanced LEDsriter. Subjective Darryl Angulo is a 62 year [...] is aware of. He has been taking sumi-ory-xihpskf DayQuil and NyQuil. Blood pressure is elevated [...] headaches. Has been taking OTC medications for hissymptoms, which may be increasing his BP. - [...] ER evaluation. SHIRLEY Roland [facility] Author Osmel James [facility] Note Date/Time December 17, 2024 1: 03pm [facility] Medical Records Department [address] [place] [address] Pre-Anesthesia Evaluation 12/17/24 1258 MR#: [id number] Acct: [id number] Name: DARRYL ANUGLO Rep #:[id number] : 1960 64 From: Osmel Scales PCP: ARAVIND Chavez Status:REG [facility] [place] Y Race: C Location: [place] [address] ASA Classification* ASA Classification ASA Classification: 2 Assessment & Plan Anesthesia* Anesthesia Assessment Anesthesia Assessment: Discussed sedation and/or anesthesia options, risks, benefits, and alternatives with patient/parents/legal guardian/POA. Questions invited. The patient/parents/legal guardian/POA seems to understand and agrees to proceedwith anesthesia plan. Reviewed the physical assessment, medical history, allergy history and patient home medications list prior to surgery/procedure/anesthetic and documented any changes. Performed airway and anesthesia risk assessments. Anesthesia Type Anesthesia Type: MAC History Source History Obtained from:: Patient and Chart Anesthesia Focused Assessment* Temperature: 97.3 F Pulse Rate: 73 Blood Pressure: 165/99 Respiratory Rate: 16 Pulse Ox: 96 Oxygen Delivery Method: Room Air Airway Assessment Mouth opens: >3 cm Mallampati Score: II Teeth Condition: Intact Neck Range of motion (ROM): Full ROM Labs Anesthesia Preop lab: CBC WBC 4.4 K/mm3 (4.4-11.0) 03/14/24 08:18 03/14/24 RBC 4.66 M/mm3 (4.6-6.2) 03/14/24 08:18 03/14/24 Hgb 15.2 g/dL (13.0-16.5) 03/14/24 08:18 03/14/24 Hct 42.3 % (40-54) 03/14/24 08:18 03/14/24 Plt Count 157 K/mm3 (150-450) 03/14/24 08:18 03/14/24 CHEMISTRY Potassium 4.1 mmol/L (3.5-5.1) 03/14/24 08:18 03/14/24 Sodium 137 mmol/L (136-145) 03/14/24 08:18 03/14/24 BUN 18 mg/dL (7-18) 03/14/24 08:18 03/14/24 Creatinine 1.00 mg/dL (0.70-1.30) 03/14/24 08:18 03/14/24 Glucose 126 mg/dL (74-106) H 03/14/24 08:18 03/14/24 COAG Pre-Assessment Diagnosis/Proposed Procedure Planned Operative Procedure(s): COLONOSCOPY-OA Anesthesia History 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 When Was Last Pacemaker Check QUESTION #4 FULL TEXT: You/Your Family Experience fever (hyperthermia) with Anesthesia Last Oral Intake Last Oral intake: Last Oral Intake NPO since 10:30 12/17/24 12:36 Meds taken in AM with sips of Yes 12/17/24 12:36 water? Meds patient instructed to take am of surgery PONV PONV - ecosystem ecology professor: PONV - ecosystem ecology professor Female No 12/15/24 11:35 HX of Motion Sickness No 12/15/24 11:35 HX of N/V After Surgery No 12/15/24 11:35 Non-Smoker Yes 12/15/24 11:35 Duration of Surgery greater No 12/15/24 11:35 than 60 minutes Number of Risk Factors 1 12/15/24 11:35 PONV Score Low Risk 12/15/24 11:35 Height & Weight Height & Weight: Anesthesia: Height & Weight Height 6 ft 12/17/24 12:36 Weight: 102 kg 12/17/24 12:36 Body Mass Index (BMI) 30.4 12/17/24 12:36 Respiratory Assessment Respiratory Assessment - ecosystem ecology professor: Respiratory Tract Infection Hx - ecosystem ecology professor Hx Respiratory Tract Infection No 12/15/24 11:35 STOP Sleep Apnea STOP Sleep Apnea - ecosystem ecology professor: STOP Sleep Apnea - ecosystem ecology professor Hx Hypertension Yes: FLUCTUATES 12/15/24 11:35 Hx Sleep Apnea No 12/15/24 11:35 CPAP BIPAP Do you snore loudly (louder No 12/15/24 11:35 than talking or can be heard Do you often feel tired/ No 12/15/24 11:35 fatigued/ sleepy during daytime? Has anyone observed you stop No 12/15/24 11:35 breathing during sleep? STOP Results Negative 12/15/24 11:35 QUESTION #5 FULL TEXT : Do you snore loudly (louder than talking or can be heard through closed doors)? 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 Specify any problems Hx of Preganancy in last 3 N/A 12/15/24 11:35 Months Nurse Filling Out Transfusion VCHRISTIN 12/15/24 11:35 & Questions: Date: 12/15/24 12/15/24 11:35 Time: 11:36 12/15/24 11:35 Patient unable to answer at this time (ie. 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 Hx Now Gestational Age (in weeks): EDC: Hx Hx Para Hx Section SAB Active Medications Active Medications: Current Medications Generic Name Dose Route Start Last Admin Trade Name Freq PRN Reason Stop Dose Admin Lactated Ringer's 1,000 mls @ 15 mls/hr 12/17/24 12:30 12/17/24 12:39 IV 15 mls/hr .Q48H LUIZ Administration PFSH Medical History Wears glasses History of steroid therapy Gout Back pain Non-smoker History of pain when walking History of echocardiogram Hypertension Home Medications ?Medication ?Instructions ?Recorded ?Last Taken ?Type allopurinol 100 mg tablet 100 mg PO DAILY 12/15/24 Unk nown History amlodipine 5 mg tablet 5 mg PO DAILY 12/15/2412/17 06:30 History hydrochlorothiazide 25 mg tablet 25 mg PO DAILY Unknown History ramipril 10 mg capsule 10 mg PO BID 12/15/24 Unknow n History Allergy/AdvReac Type Severity Reaction Status Date / Time No Known Allergies Allergy Verified 12/17/24 12:35 Surgical History History of carpal tunnel release of both wrists History of back surgery Social History Smoking Status: Never smoker Review of Systems (Anesthesia) ROS Narrative System reviewed and no additional complaints, except as documented. 12/17/24 1303 <Electronically signed by Osmel James MD> Date _ Osmel James MD Cosigner Signature: Date CC: ~ Signed [facility] Work Phone: Consult note Author Davis Odom [facility] Note Date/Time December 17, 2024 1: 54pm [facility] Medical Records Department [address] [facility] [address] Anesthesia Postop Eval I 12/17/24 1353 MR#: [id number] Acct: [id number] Name: DARRYL ANGULO Rep #:[id number] : 1960 64 From: Davis Odom PCP: ARAVIND Chavez Status:REG MOC Y Race: C Location: [place] [address] Anesthesia: Postop Eval I Current Vital Signs Temperature: 97 F Pulse Rate: 67 Blood Pressure: 132/91 Respiratory Rate: 16 Pulse Ox: 93 Oxygen Delivery Method: Room Air Assessment Airway patent: Yes Spontaneous unlabored respirations: Yes Mental status: Asleep nausea: No Vomiting: No Anesthesia Complication: No Fluid Hydration Crystalloid volume administer (ml): 600 Total IV fluid infused: 600 Progress Note Anesthesia document: Postop Eval 1 completed: Yes 12/17/24 5316 <Electronically signed by Davis Odom > Date _ Davis Ramirez Signature: Date CC: ~ Signed [facility] Work Phone: Evaluation noteNo assessment information available [facility] Work Phone: Evaluation note* Diagnosis Sinobronchitis- Primary Unspecified sinusitis (chronic) Acute cough Hypertension, unspecified type [facility] Acute [facility] Author Bretpuja Lilly [facility] Note Date/Time December 17, 2024 12 :31pm [facility] Medical Records Department [address] [place] [address] History & Physical Exam 12/17/24 1229 MR#: [id number] Acct: [id number] Name: DARRYL ANGULO Rep #:[id number] : 1960 64 From: Bret Lilly DO PCP: ARAVIND Chavez Status:REG [facility] [place] Location: [place] [address] HPI - General General Date of Admission: 12/17/24 Date of Service: 12/17/24 Chief Complaint: Screening colonoscopy HPI Narrative DARRYL ANGULO, is a 64 M who presents Today for screening colonoscopy. He is not having any problems with his bowels. He has a past medical history of hypertension and gout. Both of those diagnoses are controlled with medical therapy. [facility] Medical History Wears glasses History of steroid therapy Gout Back pain Non-smoker History of pain when walking History of echocardiogram Hypertension Home Medications ?Medication ?Instructions ?Recorded ?Last Taken ?Type allopurinol 100 mg tablet 100 mg PO DAILY 12/15/24 Unk nown History amlodipine 5 mg tablet 5 mg PO DAILY 12/15/24 Unkno wn History hydrochlorothiazide 25 mg tablet 25 mg PO DAILY Unknown History ramipril 10 mg capsule 10 mg PO BID 12/15/24 Unknow n History Allergy/AdvReac Type Severity Reaction Status Date / Time No Known Allergies Allergy Verified 12/15/24 11:27 Surgical History History of carpal tunnel release of both wrists History of back surgery Social History Smoking Status: Never smoker ROS Constitutional Constitutional: Denies fatigue, fever(s), poor appetite, weight gain or weight loss Gastrointestinal Gastrointestinal: Denies belching, bloating, change in bowel habits, change in stool character, chewing difficulty, coffee ground emesis, constipation, cramping, diarrhea, dyspepsia, dysphagia, early satiety, excessive flatus, fecalincontinence, heartburn, hematemesis, hematochezia, hemorrhoids, loose stools, melena, nausea, odynophagia, rectal bleeding, tenesmus, vomiting or weight changes Physical Exam Const alert, oriented x3, no apparent distress and healthy appearing General Appearance: cooperative GI normal to inspection, nondistended, normoactive bowel sounds, soft to palpation,non-tender and non-distended Percussion: normal to percussion Rectal Exam: deferred Assessment & Plan Assessment/Plan (1) Encounter for screening colonoscopy: PLAN: He was explained alternatives, risk and benefits including not withstanding bleeding, infection, sepsis, perforation, need for emergent urgent . He will have an ASA of 3. 12/17/24 1231 <Electronically signed by Bret Lilly DO> Cosigner Signature (if applicable): CC: ARAVIND Underwood; Bret Lilly DO~ Signed [facility] Work Phone: Reason for referral (narrative)No reason for referral information availableWThe [facility] Work Phone: Chief Complaint and Reason for Visit Chief Complaint pre op Chief Complaint Hyperlipidemia, unsp ecified Chief Complaint Hyperlipidemia, unsp ecified Gout, unspecified Chief Complaint Admit Date XRAY LUMBAR SPINE XRAY LEFT HIP AND PELV IS October 19, 2024 2:29pm Reason for Visit Admit Date Encounter for screening colonoscopy 2024 12:21pm Summary Purpose Family History No Family History Records FoundNo Family History Records Found Advance Directives Advance Directive Response Recorded Date/ Time Do you have a Healthcare Power of Fiber Locking Supervisor? No December 15, 2024 11:35am Additional Source Comments Care Teams (unrecognized sec [...] Sandor Barrera MD Primary Care Provider Active ARAVIND Chavez Attending Provider, Referring Prov ider Active Team Status: Active Member Role Status Dates Dr. Anthony Soria MD Family Provider Active Nancy Underwood INTELLIGENT SYSTEMS ENGINEER-C Primary Care Provider Active Team Status: Inactive Member Role Status Dates Nancy Underwood INTELLIGENT SYSTEMS ENGINEER-C Primary Care Provider Active Start: October 19, 2024 End: October 19, 2024 Nancy Underwood INTELLIGENT SYSTEMS ENGINEER-C Attending Provider Active St art: October 19, 2024 End: October 19, 2024 Team Status: Active Member Role/Relationship Status Dates Nancy Underwood INTELLIGENT SYSTEMS ENGINEER-C Primary Care Provider Active Team Status: Inactive Member Role/Relationship Status Dates Nancy Underwood INTELLIGENT SYSTEMS ENGINEER-C Primary Care Provider Active Start: October 19, 2024 End: October 19, 2024 Nancy Underwood INTELLIGENT SYSTEMS ENGINEER-C Attending Provider Active St art: October 19, 2024 End: October 19, 2024 Team Status: Inactive Member Role/Relationship Status Dates Nancy Underwood INTELLIGENT SYSTEMS ENGINEER-C Primary Care Provider Active Start: December 17, 2024 End: December 17, 2024 Nancy Underwood INTELLIGENT SYSTEMS ENGINEER-C Referring Provider Active St art: December 17, 2024 End: December 17, 2024 Dr. Bret Lilly DO Attending Provider Active Start: December 17, 2024 End: December 17, 2024 Team Status: Active Member Role/Relationship Status Dates Nancy Underwood INTELLIGENT SYSTEMS ENGINEER-C Primary Care Provider Active Start: December 17, 2024 Nancy Underwood INTELLIGENT SYSTEMS ENGINEER-C Referring Provider Active St art: December 17, 2024 Dr. Bret Lilly DO Attending Provider Active Start: December 17, 2024 Dr. Bret Lilly DO Other Provider Active St art: December 17, 2024 Goals (unrecognized section and content) Goals may [...] or prosecute any alcohol or drug abuse patient.[facility] the event this information is protected by the Federal Confidentiality of Alcohol and Drug Abuse Patient Records regulations: The Federal rules restrict any use of the information to criminally investigate or prosecute any alcohol or drug abuse patient.[facility] Reason for Visit (unrecogniz ed section and content) Reason Comments Cough Sore throat, chest c ongestion x 1 month (unrecognized sect ion and content) No Status Records FoundNo Status Records Found INFORMATION SOURCE (unrecogn ized section and content) DATE CREATED AUTHOR 06/23/2022 [facility] DATE CREATED AUTHOR AUTHOR'S ORGANIZ ATION 12/16/2024 [facility] FOR RECORDS PERTAINING TO PATIENTS WHO ARE [...] BE BASED ON THE PRIMARY CLINICAL RECORDS. [employer] [facility]. provides no warranty or guarantee of the accuracy or completeness of information in this document.
== END 2024-12-17 14:27 | disposition home or self-care (01) ==
LOC: EN 12:22 → AC 12:23
PROVIDERS: PCP Nurse Practitioner Family; Referring Provider Nurse Practitioner Family; Visit Provider Internal Medicine Gastroenterology
PROC: 0DJD8ZZ Inspection of Lower Intestinal Tract, Via Natural or Artificial Opening Endoscopic (ICD-10-PCS; CPT 45378; principal; 2024-12-17 13:25)
DX: Z12.11 Encounter for screening for malignant neoplasm of colon (principal); D12.0 Benign neoplasm of cecum; D12.5 Benign neoplasm of sigmoid colon; K57.30 Diverticulosis of large intestine without perforation or abscess without bleeding; I10 Essential (primary) hypertension; M10.9 Gout, unspecified; Z79.899 Other long term (current) drug therapy
CPT/HCPCS: 45380; 88305; J2405